=== PATIENT | male | born 1940 | race Two or more races ===

== ENCOUNTER 2024-09-18 20:55 | Inpatient (IN) | payer MEDICARE, MEDICAID ==
[~2024-09-18] VITALS: Ht 170.2 cm; Wt 63.0 kg
[~2024-09-18 20:55] MED LIST: CEFT1VIA14 IV; VANC750F2 IV
[2024-09-18] MEDS ORDERED: PIPERACI/TAZO 3.375GM/D5W 50ML PB IV ONE (21:16)
[2024-09-18] MEDS: PIPERACILLIN /TAZOBACTAM 3.375 G in IV D5W 50 ML IV ONE (21:20)
[2024-09-18] MEDS ORDERED: VANCOMYCIN 1 GM /D5W 250 ML PB IV ONE (21:24)
[2024-09-18 21:30] LABS: PLATELET COUNT (AUTO) 444 K/uL (150-450); RED BLOOD CELL COUNT(AUTO) 3.64 MIL/uL (4.5-6.0); RED CELL DISTRIBUTION WIDTH 19.9 % (11.5-15.0); WHITE BLOOD COUNT (AUTO) 15.3 K/uL (4.3-11.0)
[2024-09-18 21:34] VITALS: O2SAT 98
[2024-09-18] MEDS ORDERED: AMLO-212 PO (21:36)
[2024-09-18] MEDS ORDERED: EMPA10TA PO (21:36)
[2024-09-18] MEDS ORDERED: PANT40TA2 PO (21:36)
[2024-09-18] MEDS ORDERED: THIA100T74 PO (21:36)
[2024-09-18] MEDS ORDERED: VANC1PLA9 IV (21:36)
[2024-09-18] MEDS ORDERED: CYPR4TAB44 PO (21:36)
[2024-09-18] MEDS ORDERED: HYDR-3972 PO (21:36)
[2024-09-18] MEDS ORDERED: CLOP75TA15 PO (21:36)
[2024-09-18] MEDS ORDERED: ASPI-1420 PO (21:36)
[2024-09-18] MEDS ORDERED: GLIP5TAB13 PO (21:36)
[2024-09-18] MEDS ORDERED: CEFT1FRO2 IV (21:36)
[2024-09-18] MEDS ORDERED: HYDR-4077 PO (21:36)
[2024-09-18] MEDS ORDERED: GABA-532 PO (21:36)
[2024-09-18] MEDS ORDERED: ACET325C7 PO (21:36)
[2024-09-18] MEDS ORDERED: CARV12.52 PO (21:36)
[2024-09-18] MEDS ORDERED: MULT-213 PO (21:36)
[2024-09-18] MEDS ORDERED: ASCO500T10 PO (21:36)
[2024-09-18] MEDS ORDERED: FOLI0.8T3 PO (21:36)
[2024-09-18] MEDS ORDERED: INSU100V10 SQ (21:36)
[2024-09-18] MEDS ORDERED: METF-440 PO (21:36)
[2024-09-18] MEDS ORDERED: MIRT-73 PO (21:36)
[2024-09-18 21:38] LABS: CALCIUM, SERUM 8.8 mg/dL (8.5-10.1); CREATININE 2.0 mg/dL (0.6-1.3); SODIUM SERUM 144 mmol/L (136-145); UREA NITROGEN, BLOOD 32 mg/dL (7-18)
[2024-09-18] MEDS: VANCOMYCIN 1 GM in IV D5W 250 ML IV ONE (21:40)
[2024-09-18 21:43] LABS: ASPARTATE AMINOTRANSFERASE 17 U/L (15-37); TOTAL PROTEIN, SERUM 7.6 g/dL (6.4-8.2)
[2024-09-18 21:47] LABS: INR 1.05 (0.91-1.10)
[2024-09-18 21:55] LABS: LACTIC ACID 2.4 mmol/L (0.4-2.0)
[2024-09-18] MEDS: ASPIRIN 325 MG TABLET PO ONE (22:00)
[2024-09-18] MEDS: IV NS 0.9% 1,000 ML BAG IV ONE (22:15)
[2024-09-18] MEDS ORDERED: AZITHROMYCIN 500 MG VIAL ONE (22:27)
[2024-09-18] MEDS: AZITHROMYCIN 500 MG in IV D5W 250 ML IV ONE (22:50)
[2024-09-18 22:54] LABS: ABG BASE EXCESS -4.1 mmol/L (-2.0-3.0); ABG OXYGEN SATURATION 97.9 % (94.0-98.0); ABG PCO2 28.7 mmHg (35.0-48.0); ABG PH 7.440 (7.350-7.450); ABG PO2 113.4 mmHg (83.0-108.0); ABG TOTAL HEMOGLOBIN 10.5 G/dL (13.5-17.5); FLOW, BLOOD GAS 40.00 L/min (0.00-30.00); FRACTIONATED INSPIRED OXYGEN 100.0 %; SITE, ABG LEFT BRACHIAL
[2024-09-18] MEDS ORDERED: DOSING PER PHARMACY-ZOSYN IV 1 EA EA XX PRN (23:00)
[2024-09-18] MEDS ORDERED: DOSING PER PHARMACY-VANCOMYCIN IV XX PRN (23:00)
[2024-09-18] MEDS ORDERED: IPRATROPIUM NEB FS 0.5 MG/2.5 ML AMPUL.NEB NEB PRN (23:00)
[2024-09-18 23:02] VITALS: O2SAT 99
[2024-09-19] VITALS (29 sets, daily range): BP systolic 92–154; BP diastolic 58–115; TEMP 96.4–98.7; O2SAT 92–99
[2024-09-19] MEDS ORDERED: HEPARIN SODIUM, PORCINE 5000 UNITS/1 ML VIAL ONE (02:23)
[2024-09-19] MEDS ORDERED: PIPERACILLIN /TAZOBACTAM 3.375 G in IV D5W 50 ML IV ONE (06:00)
[2024-09-19 06:26] LABS: PLATELET COUNT (AUTO) 414 K/uL (150-450); RED BLOOD CELL COUNT(AUTO) 3.55 MIL/uL (4.5-6.0); RED CELL DISTRIBUTION WIDTH 19.7 % (11.5-15.0); WHITE BLOOD COUNT (AUTO) 16.2 K/uL (4.3-11.0)
[2024-09-19 07:25] LABS: CALCIUM, SERUM 8.6 mg/dL (8.5-10.1); CREATININE 2.4 mg/dL (0.6-1.3); PHOSPHORUS 6.0 mg/dL (2.5-4.9); SODIUM SERUM 143.0 mmol/L (136-145); UREA NITROGEN, BLOOD 37.0 mg/dL (7-18)
[2024-09-19] MEDS: PANTOPRAZOLE 40 MG VIAL IV SCH (08:35)
[2024-09-19] MEDS: ZOSYN IVPB 2.25 G in IV D5W 50ml IV SCH (08:35)
[2024-09-19] MEDS: ASPIRIN 81 MG TAB.CHEW PO SCH (10:00)
[2024-09-19] MEDS: HEPARIN SODIUM, PORCINE 5000 UNITS/1 ML VIAL SQ SCH (11:15)
[2024-09-19] MEDS ORDERED: ZINC220C6 PO (11:23)
[2024-09-19] MEDS ORDERED: ACET325T53 PO ×2 (11:23)
[2024-09-19] MEDS ORDERED: IPRA0.2S49 IH (11:23)
[2024-09-19] MEDS ORDERED: POLY119P2 PO (11:23)
[2024-09-19] MEDS ORDERED: INSU100I30 SQ (11:23)
[2024-09-19] MEDS ORDERED: SODI473S8 TP (11:28)
[2024-09-19] MEDS ORDERED: POVI1MED TP (11:28)
[2024-09-19] MEDS: ALBUTEROL HALF STRENGTH 1.25 MG/3 ML VIAL.NEB NEB SCH (13:06)
[2024-09-19] MEDS: IPRATROPIUM NEB FS 0.5 MG/2.5 ML AMPUL.NEB NEB SCH (13:06)
[2024-09-19] MEDS ORDERED: IPRATROPIUM NEB FS 0.5 MG/2.5 ML AMPUL.NEB IH PRN (19:30)
[2024-09-19] MEDS: VANCOMYCIN 750 MG in IV D5W 250 ML IV SCH (21:29)
[2024-09-19] MEDS: GABAPENTIN 100 MG CAPSULE PO SCH (22:00)
[2024-09-19] MEDS: INSULIN GLARGINE, 100 UNIT/ML CARTRIDGE SQ SCH (22:00)
[2024-09-19] MEDS: MIRTAZAPINE SOLUTAB 15 MG/UDTABLET TAB.RAPDIS PO SCH (22:00)
[2024-09-19] MEDS: MEROPENEM 500MG/NS 50 ML PB IV ONE (22:12)
[2024-09-19] MEDS: MEROPENEM 500 MG in IV NS 0.9% 100 ML IV ONE (22:21)
[2024-09-19] MEDS: HYDROMORPHONE 1 MG/1 ML DISP.SYRIN IV PRN (23:24)
[2024-09-20] VITALS (22 sets, daily range): BP systolic 109–165; BP diastolic 31–107; TEMP 97–98.6; O2SAT 90–99
[2024-09-20] MEDS: BLOOD SUGAR DIAGNOSTIC 1 EACH STRIP IN SCH (00:39)
[2024-09-20] MEDS: INSULIN REGULAR, HUMAN 100 UNIT/ML 3 ML VIAL SQ PRN (00:43)
[2024-09-20 04:08] LABS: PLATELET COUNT (AUTO) 360 K/uL (150-450); RED BLOOD CELL COUNT(AUTO) 3.25 MIL/uL (4.5-6.0); RED CELL DISTRIBUTION WIDTH 19.8 % (11.5-15.0); WHITE BLOOD COUNT (AUTO) 16.2 K/uL (4.3-11.0)
[2024-09-20 04:26] LABS: ASPARTATE AMINOTRANSFERASE 15.0 U/L (15-37); CALCIUM, SERUM 8.7 mg/dL (8.5-10.1); CREATINE KINASE, TOTAL 117.0 U/L (39-308); CREATININE 2.3 mg/dL (0.6-1.3); PHOSPHORUS 4.9 mg/dL (2.5-4.9); SODIUM SERUM 145.0 mmol/L (136-145); TOTAL PROTEIN, SERUM 7.1 g/dL (6.4-8.2); UREA NITROGEN, BLOOD 44.0 mg/dL (7-18)
[2024-09-20] MEDS: METFORMIN 500 MG TABLET PO SCH (07:30)
[2024-09-20] MEDS ORDERED: PANTOPRAZOLE 40 MG TABLET.DR PO SCH (07:30)
[2024-09-20] MEDS: AMLODIPINE BESYLATE 5 MG TABLET PO SCH ×2 (08:17→21:00)
[2024-09-20] MEDS: CLOPIDOGREL BISULFATE 75 MG TABLET PO SCH (08:17)
[2024-09-20] MEDS: ASPIRIN EC 81 MG TABLET.DR PO SCH (08:17)
[2024-09-20] MEDS: CARVEDILOL 12.5 MG TABLET PO SCH ×2 (08:17→21:00)
[2024-09-20] MEDS: CYPROHEPTADINE HCL 4 MG TABLET PO SCH ×2 (08:17→21:00)
[2024-09-20] MEDS: THIAMINE HCL 100 MG TABLET PO SCH (08:18)
[2024-09-20] MEDS: MEROPENEM 500 MG in IV NS 0.9% 50 ML IV SCH (08:36)
[2024-09-20] MEDS ORDERED: EMPAGLIFLOZIN 10 MG TABLET PO SCH (12:00)
[2024-09-20] MEDS: AZITHROMYCIN 500 MG in IV D5W 250 ML IV SCH (13:04)
[2024-09-20] MEDS: HEPARIN SODIUM, PORCINE 5000 UNITS/1 ML VIAL SQ SCH (22:03)
[2024-09-20] MEDS: IV NS 0.9% 250 ML IV PRN (23:36)
[2024-09-21] VITALS (20 sets, daily range): BP systolic 105–159; BP diastolic 33–107; TEMP 97–97.9; O2SAT 93–100
[2024-09-21 03:50] LABS: PLATELET COUNT (AUTO) 317 K/uL (150-450); RED BLOOD CELL COUNT(AUTO) 3.04 MIL/uL (4.5-6.0); RED CELL DISTRIBUTION WIDTH 19.7 % (11.5-15.0); WHITE BLOOD COUNT (AUTO) 11.9 K/uL (4.3-11.0)
[2024-09-21 04:05] LABS: ASPARTATE AMINOTRANSFERASE 12 U/L (15-37); CALCIUM, SERUM 8.9 mg/dL (8.5-10.1); CREATININE 2.2 mg/dL (0.6-1.3); PHOSPHORUS 4.6 mg/dL (2.5-4.9); SODIUM SERUM 142 mmol/L (136-145); TOTAL PROTEIN, SERUM 6.7 g/dL (6.4-8.2); UREA NITROGEN, BLOOD 53 mg/dL (7-18)
[2024-09-21 07:07] LABS: PTH, INTACT 112 pg/mL (15-65)
[2024-09-21] MEDS: ALBUTEROL FS 2.5 MG/3 ML VIAL.NEB NEB PRN (07:38)
[2024-09-21] MEDS: IV 1/2NS 1000 ML 1,000 ML IV ONE (11:07)
[2024-09-22] VITALS (32 sets, daily range): BP systolic 119–168; BP diastolic 34–102; TEMP 97.2–98; O2SAT 89–100
[2024-09-22 03:58] LABS: CALCIUM, SERUM 9.1 mg/dL (8.5-10.1); CREATININE 2.5 mg/dL (0.6-1.3); SODIUM SERUM 146.0 mmol/L (136-145); UREA NITROGEN, BLOOD 64.0 mg/dL (7-18)
[2024-09-22] MEDS: IV D5W 1,000 ML IV PRN (09:31)
[2024-09-22] MEDS ORDERED: VANCOMYCIN 750 MG in IV D5W 250 ML IV SCH (16:00)
[2024-09-22] MEDS: FUROSEMIDE 20 MG/2 ML VIAL IV SCH (16:47)
[2024-09-23] VITALS (25 sets, daily range): BP systolic 49–162; BP diastolic 37–107; TEMP 97.2–98; O2SAT 85–100
[2024-09-23] MEDS ORDERED: INSULIN GLARGINE, 100 UNIT/ML CARTRIDGE SQ ONE (00:09)
[2024-09-23 04:22] LABS: PLATELET COUNT (AUTO) 325 K/uL (150-450); RED BLOOD CELL COUNT(AUTO) 3.00 MIL/uL (4.5-6.0); RED CELL DISTRIBUTION WIDTH 19.9 % (11.5-15.0); WHITE BLOOD COUNT (AUTO) 13.2 K/uL (4.3-11.0)
[2024-09-23 04:38] LABS: ASPARTATE AMINOTRANSFERASE 11.0 U/L (15-37); CALCIUM, SERUM 8.7 mg/dL (8.5-10.1); CREATININE 2.5 mg/dL (0.6-1.3); PHOSPHORUS 4.4 mg/dL (2.5-4.9); SODIUM SERUM 144.0 mmol/L (136-145); TOTAL PROTEIN, SERUM 6.3 g/dL (6.4-8.2)
[2024-09-23 04:40] LABS: UREA NITROGEN, BLOOD 81.0 mg/dL (7-18)
[2024-09-23] MEDS ORDERED: PANTOPRAZOLE 40 MG/PACK PACK PO SCH (09:00)
[2024-09-23 21:40] LABS: APPEARANCE,URINE CLEAR (CLEAR); BLOOD, URINE NEGATIVE Ery/uL (NEGATIVE); LEUKOCYTE ESTERASE ,URINE NEGATIVE (NEGATIVE); NITRITE, URINE NEGATIVE (NEGATIVE); UGLUCOSE NEGATIVE (NEGATIVE)
[2024-09-23 21:44] LABS: CREATININE, URINE 172.9 MG/DL (30.0-125.0); URINE SODIUM, RANDOM 45.0 mmol/l (40-220); URINE TOTAL PROTEIN 32.0 mg/dL (0-11.9)
[2024-09-23 21:47] LABS: ADD URINE CULTURE NO; URINE AMORPHOUS URATE Few /HPF (None Seen)
[2024-09-23 21:52] LABS: ABG BASE EXCESS -7.9 mmol/L (-2.0-3.0); ABG OXYGEN SATURATION 87.6 % (94.0-98.0); ABG PCO2 40.3 mmHg (35.0-48.0); ABG PH 7.276 (7.350-7.450); ABG PO2 67.0 mmHg (83.0-108.0); ABG TOTAL HEMOGLOBIN 10.0 G/dL (13.5-17.5); FRACTIONATED INSPIRED OXYGEN 100.0 %; SET RATE, BG 16.0; SITE, ABG LEFT RADIAL
[2024-09-23] MEDS: Sodium Bicarbonate 100 MEQ in IV D5W 1,000 ML IV PRN (22:15)
[2024-09-23] MEDS: SODIUM BICARBONATE SYR 50 MEQ/50 ML DISP.SYRIN IV ONE (22:15)
[2024-09-23] MEDS: VANCOMYCIN 1 GM in IV D5W 250ml IV SCH (23:50)
[2024-09-24] VITALS (47 sets, daily range): BP systolic 64–147; BP diastolic 20–132; TEMP 97.3–98.1; O2SAT 90–100
[2024-09-24 04:52] LABS: PLATELET COUNT (AUTO) 370 K/uL (150-450); RED BLOOD CELL COUNT(AUTO) 3.39 MIL/uL (4.5-6.0); RED CELL DISTRIBUTION WIDTH 19.3 % (11.5-15.0); WHITE BLOOD COUNT (AUTO) 18.6 K/uL (4.3-11.0)
[2024-09-24 05:06] LABS: ASPARTATE AMINOTRANSFERASE 11.0 U/L (15-37); CALCIUM, SERUM 8.8 mg/dL (8.5-10.1); CREATININE 2.8 mg/dL (0.6-1.3); PHOSPHORUS 5.8 mg/dL (2.5-4.9); SODIUM SERUM 144.0 mmol/L (136-145); TOTAL PROTEIN, SERUM 6.2 g/dL (6.4-8.2)
[2024-09-24 05:31] LABS: UREA NITROGEN, BLOOD 93.0 mg/dL (7-18)
[2024-09-24] MEDS: PANTOPRAZOLE 40 MG/PACK PACK PO SCH (09:00)
[2024-09-24] MEDS: hydrALAZINE HCL IV 20 MG VIAL IV PRN (10:33)
[2024-09-24] MEDS ORDERED: ETOMIDATE 2 MG/ML VIAL IV ONE (11:42)
[2024-09-24] MEDS ORDERED: ROCURONIUM BROMIDE 50 MG/5 ML IV ONE (11:42)
[2024-09-24] MEDS ORDERED: PROPOFOL 100 ML IV PRN (12:00)
[2024-09-24] MEDS ORDERED: NOREPINEPHRINE 32 MG in IV NS 0.9% 218 ML IV PRN (12:00)
[2024-09-24 13:07] LABS: *ANCA ATYPICAL p-ANCA <1:20 titer (Neg:<1:20); *ANCA CYTOPLASMIC (C-ANCA) <1:20 titer (Neg:<1:20); *ANCA PERINUCLEAR (P-ANCA) <1:20 titer (Neg:<1:20)
[2024-09-24] MEDS: NOREPINEPHRINE 32 MG in IV NS 0.9% 218 ML IV PRN (13:36)
[2024-09-24 13:53] LABS: ABG BASE EXCESS -2.7 mmol/L (-2.0-3.0); ABG OXYGEN SATURATION 91.8 % (94.0-98.0); ABG PCO2 32.4 mmHg (35.0-48.0); ABG PH 7.429 (7.350-7.450); ABG PO2 67.7 mmHg (83.0-108.0); ABG TOTAL HEMOGLOBIN 10.0 G/dL (13.5-17.5); FRACTIONATED INSPIRED OXYGEN 100.0 %; PEEP,BG 5 cm H2O; SET RATE, BG 16.0; VT, ABG 550 mL
[2024-09-24 14:01] LABS: SITE, ABG RIGHT RADIAL
[2024-09-24] MEDS: PROPOFOL 100 ML IV PRN (14:14)
[2024-09-24 15:07] LABS: COCCIDIOIDES Abs, IgG,EIA 0.3 EIA Units (.); COCCIDIOIDES Abs, IgM,EIA 0.3 EIA Units (.)
[2024-09-24 15:27] LABS: ABG BASE EXCESS -4.4 mmol/L (-2.0-3.0); ABG OXYGEN SATURATION 96.5 % (94.0-98.0); ABG PCO2 32.8 mmHg (35.0-48.0); ABG PH 7.396 (7.350-7.450); ABG PO2 99.6 mmHg (83.0-108.0); ABG TOTAL HEMOGLOBIN 10.9 G/dL (13.5-17.5); FRACTIONATED INSPIRED OXYGEN 100.0 %; PEEP,BG 8 cm H2O; SET RATE, BG 25.0; SITE, ABG RIGHT RADIAL; VT, ABG 400 mL
[2024-09-24] MEDS: Sodium Bicarbonate 100 MEQ in IV D5W 1,000 ML IV SCH (15:34)
[2024-09-24] MEDS: FENTANYL CITRAT IV 2,500 MCG in IV NS 0.9% 200 ML IV PRN (17:07)
[2024-09-25] VITALS (52 sets, daily range): BP systolic 89–139; BP diastolic 19–92; TEMP 97.6–97.9; O2SAT 56–100
[2024-09-25 05:11] LABS: CALCIUM, SERUM 7.9 mg/dL (8.5-10.1); CREATININE 2.4 mg/dL (0.6-1.3); SODIUM SERUM 140.0 mmol/L (136-145); UREA NITROGEN, BLOOD 70.0 mg/dL (7-18)
[2024-09-25 08:49] LABS: ABG BASE EXCESS 1.4 mmol/L (-2.0-3.0); ABG OXYGEN SATURATION 86.0 % (94.0-98.0); ABG PCO2 38.4 mmHg (35.0-48.0); ABG PH 7.440 (7.350-7.450); ABG PO2 54.3 mmHg (83.0-108.0); ABG TOTAL HEMOGLOBIN 10.2 G/dL (13.5-17.5); FRACTIONATED INSPIRED OXYGEN 80.0 %; PEEP,BG 8 cm H2O; SET RATE, BG 25.0; SITE, ABG RIGHT RADIAL; VT, ABG 400 mL
[2024-09-25] MEDS ORDERED: NEPRO 1,000 ML BOTTLE GT PRN (11:30)
[2024-09-25] MEDS ORDERED: NEPRO 1,000 ML BOTTLE NG SCH (12:00)
[2024-09-25] MEDS: GLUCERNA 1.2 1,000 ML BOTTLE NG PRN (18:01)
[2024-09-26] VITALS (72 sets, daily range): BP systolic 74–167; BP diastolic 17–89; TEMP 97.6–98.5; O2SAT 91–100
[2024-09-26 06:07] LABS: *SPE A/G RATIO 0.6 (0.7-1.7); *SPE ALBUMIN 2.4 g/dL (2.9-4.4); *SPE ALPHA-1-GLOBULIN 0.4 g/dL (0.0-0.4); *SPE ALPHA-2-GLOBULIN 1.0 g/dL (0.4-1.0); *SPE BETA GLOBULIN 1.3 g/dL (0.7-1.3); *SPE GLOBULIN, TOTAL 3.7 g/dL (2.2-3.9); *SPE M-SPIKE Not Observed g/dL (Not Observed); *SPE PROTEIN TOTAL 6.1 g/dL (6.0-8.5); *SPEGAMMA GLOBULIN 1.0 g/dL (0.4-1.8)
[2024-09-26] MEDS: NOREPINEPHRINE 8 MG in IV D5W 242 ML IV PRN (06:28)
[2024-09-26 08:29] LABS: ABG BASE EXCESS 4.6 mmol/L (-2.0-3.0); ABG OXYGEN SATURATION 94.1 % (94.0-98.0); ABG PCO2 38.0 mmHg (35.0-48.0); ABG PH 7.489 (7.350-7.450); ABG PO2 72.2 mmHg (83.0-108.0); ABG TOTAL HEMOGLOBIN 9.4 G/dL (13.5-17.5); FRACTIONATED INSPIRED OXYGEN 70.0 %; PEEP,BG 10 cm H2O; SET RATE, BG 25.0; SITE, ABG RIGHT RADIAL; VT, ABG 400 mL
[2024-09-26] MEDS ORDERED: VANCOMYCIN 750 MG in IV D5W 250 ML IV SCH (10:00)
[2024-09-26 12:02] LABS: CALCIUM, SERUM 8.1 mg/dL (8.5-10.1); CREATININE 3.2 mg/dL (0.6-1.3); PHOSPHORUS 4.5 mg/dL (2.5-4.9); SODIUM SERUM 140.0 mmol/L (136-145); UREA NITROGEN, BLOOD 56.0 mg/dL (7-18)
[2024-09-26] MEDS: FLUCONAZOLE (100 MG) 100 MG TABLET PO SCH (21:44)
[2024-09-26 22:06] LABS: *MYCOPLASMA PNEUMONIAE IgG 178 U/mL (0-99); *MYCOPLASMA PNEUMONIAE IgM <770 U/mL (0-769)
[2024-09-27] VITALS (96 sets, daily range): BP systolic 75–181; BP diastolic 16–101; TEMP 97.9–98.6; O2SAT 88–100
[2024-09-27 04:56] LABS: PLATELET COUNT (AUTO) 309 K/uL (150-450); RED BLOOD CELL COUNT(AUTO) 3.12 MIL/uL (4.5-6.0); RED CELL DISTRIBUTION WIDTH 19.7 % (11.5-15.0); WHITE BLOOD COUNT (AUTO) 18.6 K/uL (4.3-11.0)
[2024-09-27 04:59] LABS: CALCIUM, SERUM 7.6 mg/dL (8.5-10.1); CREATININE 2.4 mg/dL (0.6-1.3); PHOSPHORUS 3.8 mg/dL (2.5-4.9); SODIUM SERUM 141.0 mmol/L (136-145); UREA NITROGEN, BLOOD 39.0 mg/dL (7-18)
[2024-09-27 05:58] LABS: EOSINOPHILS % (MANUAL) 1 % (0-4); LYMPHOCYTES % (MANUAL) 9 % (16-48); MONOCYTES % (MANUAL) 10 % (0-11.0); NEUTROPHILS % (MANUAL) 80 (42-76); PLATELET ESTIMATE ADEQUATE
[2024-09-27 08:00] LABS: ABG BASE EXCESS 6.9 mmol/L (-2.0-3.0); ABG OXYGEN SATURATION 82.7 % (94.0-98.0); ABG PCO2 45.3 mmHg (35.0-48.0); ABG PH 7.460 (7.350-7.450); ABG PO2 47.0 mmHg (83.0-108.0); ABG TOTAL HEMOGLOBIN 9.5 G/dL (13.5-17.5); FRACTIONATED INSPIRED OXYGEN 50.0 %; PEEP,BG 5 cm H2O; SET RATE, BG 18.0; SITE, ABG RIGHT RADIAL; VT, ABG 400 mL
[2024-09-27] MEDS: POTASSIUM CL. PREMIX PERIPHER. 50 ML IV SCH (11:19)
[2024-09-28] VITALS (45 sets, daily range): BP systolic 90–163; BP diastolic 14–73; TEMP 97.6–99; O2SAT 90–100
[2024-09-28 05:09] LABS: PLATELET COUNT (AUTO) 248 K/uL (150-450); RED BLOOD CELL COUNT(AUTO) 2.92 MIL/uL (4.5-6.0); RED CELL DISTRIBUTION WIDTH 19.9 % (11.5-15.0); WHITE BLOOD COUNT (AUTO) 14.7 K/uL (4.3-11.0)
[2024-09-28 05:18] LABS: CALCIUM, SERUM 8.1 mg/dL (8.5-10.1); CREATININE 3.4 mg/dL (0.6-1.3); PHOSPHORUS 5.3 mg/dL (2.5-4.9); SODIUM SERUM 138.0 mmol/L (136-145); UREA NITROGEN, BLOOD 54.0 mg/dL (7-18)
[2024-09-28] MEDS ORDERED: LORAZEPAM INJ 2 MG/ML VIAL IV PRN (23:00)
[2024-09-29] VITALS (24 sets, daily range): BP systolic 82–141; BP diastolic 30–78; TEMP 97.4–99.4; O2SAT 95–100
[2024-09-29] MEDS: VANCOMYCIN POST DIALYSIS 500MG IV PRN (01:06)
[2024-09-29 04:11] LABS: PLATELET COUNT (AUTO) 254 K/uL (150-450); RED BLOOD CELL COUNT(AUTO) 2.98 MIL/uL (4.5-6.0); RED CELL DISTRIBUTION WIDTH 19.9 % (11.5-15.0); WHITE BLOOD COUNT (AUTO) 15.7 K/uL (4.3-11.0)
[2024-09-29 04:35] LABS: CALCIUM, SERUM 7.9 mg/dL (8.5-10.1); CREATININE 2.9 mg/dL (0.6-1.3); PHOSPHORUS 4.2 mg/dL (2.5-4.9); SODIUM SERUM 141.0 mmol/L (136-145); UREA NITROGEN, BLOOD 40.0 mg/dL (7-18)
[2024-09-29 05:08] LABS: HEPATITIS B CORE AB, IgM Negative (Negative); HEPATITIS B CORE AB, TOTAL Positive (Negative)
[2024-09-29 06:55] LABS: ABG BASE EXCESS 1.3 mmol/L (-2.0-3.0); ABG OXYGEN SATURATION 92.8 % (94.0-98.0); ABG PCO2 42.2 mmHg (35.0-48.0); ABG PH 7.409 (7.350-7.450); ABG PO2 71.5 mmHg (83.0-108.0); ABG TOTAL HEMOGLOBIN 8.1 G/dL (13.5-17.5); FRACTIONATED INSPIRED OXYGEN 60.0 %; PEEP,BG 8 cm H2O; SET RATE, BG 18.0; SITE, ABG LEFT BRACHIAL; VT, ABG 400 mL
[2024-09-29 09:28] LABS: ABG BASE EXCESS 1.7 mmol/L (-2.0-3.0); ABG OXYGEN SATURATION 96.2 % (94.0-98.0); ABG PCO2 39.2 mmHg (35.0-48.0); ABG PH 7.439 (7.350-7.450); ABG PO2 88.6 mmHg (83.0-108.0); ABG TOTAL HEMOGLOBIN 7.5 G/dL (13.5-17.5); FRACTIONATED INSPIRED OXYGEN 60.0 %; PEEP,BG 8 cm H2O; SET RATE, BG 18.0; SITE, ABG LEFT BRACHIAL; VT, ABG 400 mL
[2024-09-30] VITALS (24 sets, daily range): BP systolic 90–153; BP diastolic 32–137; TEMP 97.6–98.7; O2SAT 96–100
[2024-09-30 04:54] LABS: PLATELET COUNT (AUTO) 254 K/uL (150-450); RED BLOOD CELL COUNT(AUTO) 2.65 MIL/uL (4.5-6.0); RED CELL DISTRIBUTION WIDTH 20.0 % (11.5-15.0); WHITE BLOOD COUNT (AUTO) 11.5 K/uL (4.3-11.0)
[2024-09-30 05:04] LABS: CALCIUM, SERUM 8.0 mg/dL (8.5-10.1); CREATININE 3.7 mg/dL (0.6-1.3); SODIUM SERUM 142 mmol/L (136-145); UREA NITROGEN, BLOOD 53 mg/dL (7-18)
[2024-09-30 05:05] LABS: ASPARTATE AMINOTRANSFERASE 22 U/L (15-37); PHOSPHORUS 5.1 mg/dL (2.5-4.9); TOTAL PROTEIN, SERUM 5.2 g/dL (6.4-8.2)
[2024-09-30 05:48] LABS: NEUTROPHILS % (MANUAL) 80 (42-76)
[2024-09-30 05:49] LABS: EOSINOPHILS % (MANUAL) 4 % (0-4); LYMPHOCYTES % (MANUAL) 7 % (16-48); MONOCYTES % (MANUAL) 9 % (0-11.0); PLATELET ESTIMATE ADEQUATE
[2024-09-30 08:42] LABS: ABG BASE EXCESS 2.9 mmol/L (-2.0-3.0); ABG OXYGEN SATURATION 91.0 % (94.0-98.0); ABG PCO2 38.6 mmHg (35.0-48.0); ABG PH 7.461 (7.350-7.450); ABG PO2 61.6 mmHg (83.0-108.0); ABG TOTAL HEMOGLOBIN 7.5 G/dL (13.5-17.5); FRACTIONATED INSPIRED OXYGEN 50.0 %; PEEP,BG 8 cm H2O; SET RATE, BG 18.0; SITE, ABG RIGHT RADIAL; VT, ABG 400 mL
[2024-09-30] MEDS: ALBUMIN 25% 25 GM in PREMIX 1 EA IV PRN (14:04)
[2024-09-30] MEDS: NEPRO 1,000 ML BOTTLE GT PRN (20:12)
[2024-10-01] VITALS (30 sets, daily range): BP systolic 73–141; BP diastolic 40–108; TEMP 98.2–99.4; O2SAT 95–100
[2024-10-01 05:26] LABS: PLATELET COUNT (AUTO) 243 K/uL (150-450); RED BLOOD CELL COUNT(AUTO) 2.43 MIL/uL (4.5-6.0); RED CELL DISTRIBUTION WIDTH 20.0 % (11.5-15.0); WHITE BLOOD COUNT (AUTO) 9.1 K/uL (4.3-11.0)
[2024-10-01 05:56] LABS: ASPARTATE AMINOTRANSFERASE 19.0 U/L (15-37); CALCIUM, SERUM 7.9 mg/dL (8.5-10.1); CREATININE 3.2 mg/dL (0.6-1.3); PHOSPHORUS 4.4 mg/dL (2.5-4.9); SODIUM SERUM 136.0 mmol/L (136-145); TOTAL PROTEIN, SERUM 5.2 g/dL (6.4-8.2); UREA NITROGEN, BLOOD 43.0 mg/dL (7-18)
[2024-10-01 07:07] LABS: EOSINOPHILS % (MANUAL) 3 % (0-4); LYMPHOCYTES % (MANUAL) 9 % (16-48); MONOCYTES % (MANUAL) 13 % (0-11.0); NEUTROPHILS % (MANUAL) 75 (42-76); PLATELET ESTIMATE ADEQUATE
[2024-10-01 08:52] LABS: ABG BASE EXCESS 2.5 mmol/L (-2.0-3.0); ABG OXYGEN SATURATION 92.2 % (94.0-98.0); ABG PCO2 34.9 mmHg (35.0-48.0); ABG PH 7.489 (7.350-7.450); ABG PO2 65.9 mmHg (83.0-108.0); ABG TOTAL HEMOGLOBIN 7.3 G/dL (13.5-17.5); FRACTIONATED INSPIRED OXYGEN 40.0 %; PEEP,BG 10 cm H2O; SET RATE, BG 18.0; SITE, ABG RIGHT RADIAL; VT, ABG 400 mL
[2024-10-01] MEDS: EPOETIN ALFA (10,000 UNIT) 10,000 UNIT/ML VIAL SQ ONE (15:06)
[2024-10-02] VITALS (28 sets, daily range): BP systolic 92–145; BP diastolic 25–68; TEMP 98.4–99.4; O2SAT 63–100
[2024-10-02 06:00] LABS: ASPARTATE AMINOTRANSFERASE 16.0 U/L (15-37); CALCIUM, SERUM 7.7 mg/dL (8.5-10.1); CREATININE 4.1 mg/dL (0.6-1.3); PHOSPHORUS 4.5 mg/dL (2.5-4.9); SODIUM SERUM 136.0 mmol/L (136-145); TOTAL PROTEIN, SERUM 4.9 g/dL (6.4-8.2); UREA NITROGEN, BLOOD 53.0 mg/dL (7-18)
[2024-10-02 06:09] LABS: PLATELET COUNT (AUTO) 241 K/uL (150-450); RED BLOOD CELL COUNT(AUTO) 2.77 MIL/uL (4.5-6.0); RED CELL DISTRIBUTION WIDTH 22.3 % (11.5-15.0); WHITE BLOOD COUNT (AUTO) 9.7 K/uL (4.3-11.0)
[2024-10-02 07:08] LABS: LYMPHOCYTES % (MANUAL) 10 % (16-48); MONOCYTES % (MANUAL) 6 % (0-11.0); NEUTROPHILS % (MANUAL) 84 (42-76); PLATELET ESTIMATE PLATELET CLUMPS SEEN
[2024-10-02] MEDS: Z GUARD REMEDY 4 OZ OINT TP SCH (10:05)
[2024-10-03] VITALS (24 sets, daily range): BP systolic 93–132; BP diastolic 3–78; TEMP 98.5–99.7; O2SAT 92–99
[2024-10-03 05:07] LABS: PLATELET COUNT (AUTO) 244 K/uL (150-450); RED BLOOD CELL COUNT(AUTO) 3.22 MIL/uL (4.5-6.0); RED CELL DISTRIBUTION WIDTH 20.8 % (11.5-15.0); WHITE BLOOD COUNT (AUTO) 12.5 K/uL (4.3-11.0)
[2024-10-03 05:25] LABS: ASPARTATE AMINOTRANSFERASE 16.0 U/L (15-37); CALCIUM, SERUM 8.1 mg/dL (8.5-10.1); CREATININE 2.9 mg/dL (0.6-1.3); PHOSPHORUS 3.3 mg/dL (2.5-4.9); SODIUM SERUM 137.0 mmol/L (136-145); TOTAL PROTEIN, SERUM 5.6 g/dL (6.4-8.2); UREA NITROGEN, BLOOD 35.0 mg/dL (7-18)
[2024-10-03] MEDS: THERAHONEY GEL 1.5 OZ TUBE TP SCH (09:33)
[2024-10-04] VITALS (24 sets, daily range): BP systolic 73–138; BP diastolic 31–92; TEMP 98.3–99.1; O2SAT 91–99
[2024-10-04 05:08] LABS: PLATELET COUNT (AUTO) 247 K/uL (150-450); RED BLOOD CELL COUNT(AUTO) 3.23 MIL/uL (4.5-6.0); RED CELL DISTRIBUTION WIDTH 20.5 % (11.5-15.0); WHITE BLOOD COUNT (AUTO) 14.6 K/uL (4.3-11.0)
[2024-10-04 05:22] LABS: ASPARTATE AMINOTRANSFERASE 16.0 U/L (15-37); CALCIUM, SERUM 8.1 mg/dL (8.5-10.1); CREATININE 3.9 mg/dL (0.6-1.3); SODIUM SERUM 138.0 mmol/L (136-145); TOTAL PROTEIN, SERUM 5.5 g/dL (6.4-8.2); UREA NITROGEN, BLOOD 54.0 mg/dL (7-18)
[2024-10-05] VITALS (24 sets, daily range): BP systolic 68–135; BP diastolic 32–101; TEMP 97.9–98.5; O2SAT 93–99
[2024-10-05 04:48] LABS: PLATELET COUNT (AUTO) 247 K/uL (150-450); RED BLOOD CELL COUNT(AUTO) 3.03 MIL/uL (4.5-6.0); RED CELL DISTRIBUTION WIDTH 21.2 % (11.5-15.0); WHITE BLOOD COUNT (AUTO) 17.0 K/uL (4.3-11.0)
[2024-10-05 05:16] LABS: CALCIUM, SERUM 8.3 mg/dL (8.5-10.1); CREATININE 3.3 mg/dL (0.6-1.3); PHOSPHORUS 3.0 mg/dL (2.5-4.9); SODIUM SERUM 138.0 mmol/L (136-145); UREA NITROGEN, BLOOD 38.0 mg/dL (7-18)
[2024-10-06] VITALS (24 sets, daily range): BP systolic 109–146; BP diastolic 13–118; TEMP 98–98.3; O2SAT 92–99
[2024-10-06 05:17] LABS: PLATELET COUNT (AUTO) 257 K/uL (150-450); RED BLOOD CELL COUNT(AUTO) 2.77 MIL/uL (4.5-6.0); RED CELL DISTRIBUTION WIDTH 20.7 % (11.5-15.0); WHITE BLOOD COUNT (AUTO) 14.3 K/uL (4.3-11.0)
[2024-10-06 06:14] LABS: CALCIUM, SERUM 8.4 mg/dL (8.5-10.1); CREATININE 4.1 mg/dL (0.6-1.3); PHOSPHORUS 3.6 mg/dL (2.5-4.9); SODIUM SERUM 136.0 mmol/L (136-145); UREA NITROGEN, BLOOD 59.0 mg/dL (7-18)
[2024-10-07] VITALS (24 sets, daily range): BP systolic 94–139; BP diastolic 17–110; TEMP 98–99; O2SAT 92–98
[2024-10-07 04:55] LABS: PLATELET COUNT (AUTO) 247 K/uL (150-450); RED BLOOD CELL COUNT(AUTO) 2.73 MIL/uL (4.5-6.0); RED CELL DISTRIBUTION WIDTH 20.0 % (11.5-15.0); WHITE BLOOD COUNT (AUTO) 11.1 K/uL (4.3-11.0)
[2024-10-07 05:11] LABS: CALCIUM, SERUM 8.4 mg/dL (8.5-10.1); CREATININE 3.8 mg/dL (0.6-1.3); PHOSPHORUS 3.1 mg/dL (2.5-4.9); SODIUM SERUM 143.0 mmol/L (136-145); UREA NITROGEN, BLOOD 46.0 mg/dL (7-18)
[2024-10-07 10:05] LABS: ABG BASE EXCESS 1.2 mmol/L (-2.0-3.0); ABG OXYGEN SATURATION 88.1 % (94.0-98.0); ABG PCO2 37.2 mmHg (35.0-48.0); ABG PH 7.449 (7.350-7.450); ABG PO2 54.6 mmHg (83.0-108.0); ABG TOTAL HEMOGLOBIN 8.8 G/dL (13.5-17.5); FRACTIONATED INSPIRED OXYGEN 50.0 %; PEEP,BG 5 cm H2O; SET RATE, BG 18.0; SITE, ABG RIGHT RADIAL; VT, ABG 400 mL
[2024-10-07] MEDS: PROSOURCE / PROSTAT (PYXIS) 30 ML UDC NG SCH (16:01)
[2024-10-08] VITALS (25 sets, daily range): BP systolic 105–134; BP diastolic 28–82; TEMP 98.3–99.6; O2SAT 94–99
[2024-10-08 05:09] LABS: PLATELET COUNT (AUTO) 246 K/uL (150-450); RED BLOOD CELL COUNT(AUTO) 2.78 MIL/uL (4.5-6.0); RED CELL DISTRIBUTION WIDTH 20.5 % (11.5-15.0); WHITE BLOOD COUNT (AUTO) 12.1 K/uL (4.3-11.0)
[2024-10-08 05:26] LABS: CALCIUM, SERUM 8.3 mg/dL (8.5-10.1); CREATININE 4.6 mg/dL (0.6-1.3); PHOSPHORUS 3.2 mg/dL (2.5-4.9); SODIUM SERUM 139.0 mmol/L (136-145); UREA NITROGEN, BLOOD 60.0 mg/dL (7-18)
[2024-10-08 06:33] LABS: BASOPHILS % (MANUAL) 0 % (0.0-2.0); EOSINOPHILS % (MANUAL) 2 % (0-4); LYMPHOCYTES % (MANUAL) 5 % (16-48); MONOCYTES % (MANUAL) 6 % (0-11.0); NEUTROPHILS % (MANUAL) 87 (42-76); PLATELET ESTIMATE ADEQUATE
[2024-10-09] VITALS (24 sets, daily range): BP systolic 99–123; BP diastolic 30–68; TEMP 97.5–99.8; O2SAT 96–100
[2024-10-09 04:22] LABS: PLATELET COUNT (AUTO) 234 K/uL (150-450); RED BLOOD CELL COUNT(AUTO) 3.04 MIL/uL (4.5-6.0); RED CELL DISTRIBUTION WIDTH 20.2 % (11.5-15.0); WHITE BLOOD COUNT (AUTO) 12.9 K/uL (4.3-11.0)
[2024-10-09 04:39] LABS: CALCIUM, SERUM 8.3 mg/dL (8.5-10.1); CREATININE 3.6 mg/dL (0.6-1.3); PHOSPHORUS 2.6 mg/dL (2.5-4.9); SODIUM SERUM 137.0 mmol/L (136-145); UREA NITROGEN, BLOOD 49.0 mg/dL (7-18)
[2024-10-09 19:28] LABS: OCCULT BLOOD STOOL NEGATIVE (NEGATIVE)
[2024-10-10] VITALS (32 sets, daily range): BP systolic 83–133; BP diastolic 31–76; TEMP 98.1–98.9; O2SAT 96–100
[2024-10-10 04:50] LABS: PLATELET COUNT (AUTO) 207 K/uL (150-450); RED BLOOD CELL COUNT(AUTO) 2.73 MIL/uL (4.5-6.0); RED CELL DISTRIBUTION WIDTH 20.7 % (11.5-15.0); WHITE BLOOD COUNT (AUTO) 11.1 K/uL (4.3-11.0)
[2024-10-10 05:11] LABS: CALCIUM, SERUM 8.6 mg/dL (8.5-10.1); CREATININE 5.0 mg/dL (0.6-1.3); PHOSPHORUS 3.0 mg/dL (2.5-4.9); SODIUM SERUM 140.0 mmol/L (136-145); UREA NITROGEN, BLOOD 66.0 mg/dL (7-18)
[2024-10-10 05:54] LABS: EOSINOPHILS % (MANUAL) 2 % (0-4); LYMPHOCYTES % (MANUAL) 6 % (16-48); MONOCYTES % (MANUAL) 5 % (0-11.0); NEUTROPHILS % (MANUAL) 87 (42-76); PLATELET ESTIMATE ADEQUATE
[2024-10-11] VITALS (28 sets, daily range): BP systolic 93–159; BP diastolic 34–107; TEMP 97.8–98.7; O2SAT 97–100
[2024-10-11 04:22] LABS: PLATELET COUNT (AUTO) 250 K/uL (150-450); RED BLOOD CELL COUNT(AUTO) 3.57 MIL/uL (4.5-6.0); RED CELL DISTRIBUTION WIDTH 20.0 % (11.5-15.0); WHITE BLOOD COUNT (AUTO) 16.6 K/uL (4.3-11.0)
[2024-10-11 04:29] LABS: CALCIUM, SERUM 8.7 mg/dL (8.5-10.1); CREATININE 3.4 mg/dL (0.6-1.3); PHOSPHORUS 2.4 mg/dL (2.5-4.9); SODIUM SERUM 139 mmol/L (136-145); UREA NITROGEN, BLOOD 45 mg/dL (7-18)
[2024-10-11] MEDS ORDERED: POTASSIUM CL. PREMIX PERIPHER. 50 ML IV SCH (12:00)
[2024-10-11] MEDS: POTASSIUM CHLORIDE 20 MEQ POWDER PACKET GT ONE (12:00)
[2024-10-11] MEDS: EPOETIN ALFA (10,000 UNIT) 10,000 UNIT/ML VIAL SQ SCH (14:04)
[2024-10-11] MEDS: PROPOFOL 100 ML IV PRN (15:34)
[2024-10-11] MEDS: PANTOPRAZOLE 40 MG VIAL IV SCH (21:31)
[2024-10-11] MEDS: METOCLOPRAMIDE HCL 10 MG/2 ML VIAL IV SCH (21:31)
[2024-10-12] VITALS (25 sets, daily range): BP systolic 63–137; BP diastolic 21–105; TEMP 97.4–98.2; O2SAT 98–100
[2024-10-12 04:49] LABS: PLATELET COUNT (AUTO) 270 K/uL (150-450); RED BLOOD CELL COUNT(AUTO) 3.37 MIL/uL (4.5-6.0); RED CELL DISTRIBUTION WIDTH 20.7 % (11.5-15.0); WHITE BLOOD COUNT (AUTO) 13.9 K/uL (4.3-11.0)
[2024-10-12 05:29] LABS: SODIUM SERUM 142 mmol/L (136-145)
[2024-10-12 05:30] LABS: ASPARTATE AMINOTRANSFERASE 14 U/L (15-37); CALCIUM, SERUM 8.6 mg/dL (8.5-10.1); CREATININE 4.3 mg/dL (0.6-1.3); PHOSPHORUS 2.9 mg/dL (2.5-4.9); TOTAL PROTEIN, SERUM 5.4 g/dL (6.4-8.2); UREA NITROGEN, BLOOD 65 mg/dL (7-18)
[2024-10-13] VITALS (29 sets, daily range): BP systolic 91–151; BP diastolic 4–87; TEMP 97.2–97.7; O2SAT 95–100
[2024-10-13 04:08] LABS: PLATELET COUNT (AUTO) 263 K/uL (150-450); RED BLOOD CELL COUNT(AUTO) 3.13 MIL/uL (4.5-6.0); RED CELL DISTRIBUTION WIDTH 20.7 % (11.5-15.0); WHITE BLOOD COUNT (AUTO) 11.0 K/uL (4.3-11.0)
[2024-10-13 04:18] LABS: CALCIUM, SERUM 8.4 mg/dL (8.5-10.1); CREATININE 3.6 mg/dL (0.6-1.3); SODIUM SERUM 143.0 mmol/L (136-145); UREA NITROGEN, BLOOD 43.0 mg/dL (7-18)
[2024-10-13] MEDS: ONDANSETRON HCL/PF 4 MG/2 ML VIAL IVP PRN (08:58)
[2024-10-13 10:01] LABS: PLATELET COUNT (AUTO) 297 K/uL (150-450); RED BLOOD CELL COUNT(AUTO) 3.50 MIL/uL (4.5-6.0); RED CELL DISTRIBUTION WIDTH 20.5 % (11.5-15.0); WHITE BLOOD COUNT (AUTO) 10.4 K/uL (4.3-11.0)
[2024-10-14] VITALS (25 sets, daily range): BP systolic 81–141; BP diastolic 25–92; TEMP 97.5–98.5; O2SAT 94–100
[2024-10-14 04:35] LABS: PLATELET COUNT (AUTO) 339 K/uL (150-450); RED BLOOD CELL COUNT(AUTO) 3.56 MIL/uL (4.5-6.0); RED CELL DISTRIBUTION WIDTH 20.3 % (11.5-15.0); WHITE BLOOD COUNT (AUTO) 9.0 K/uL (4.3-11.0)
[2024-10-14 04:56] LABS: CALCIUM, SERUM 8.8 mg/dL (8.5-10.1); CREATININE 4.2 mg/dL (0.6-1.3); SODIUM SERUM 145.0 mmol/L (136-145); UREA NITROGEN, BLOOD 49.0 mg/dL (7-18)
[2024-10-14] MEDS: CYPROHEPTADINE HCL 4 MG TABLET GT SCH (08:26)
[2024-10-14] MEDS: ASPIRIN 81 MG TAB.CHEW GT SCH (08:35)
[2024-10-14] MEDS: PROSOURCE / PROSTAT (PYXIS) 30 ML UDC NG SCH (08:35)
[2024-10-14] MEDS: CARVEDILOL 12.5 MG TABLET GT SCH (11:52)
[2024-10-14] MEDS: MIRTAZAPINE SOLUTAB 15 MG/UDTABLET TAB.RAPDIS GT SCH (21:04)
[2024-10-14] MEDS: GABAPENTIN 100 MG CAPSULE GT SCH (21:05)
[2024-10-15] VITALS (48 sets, daily range): BP systolic 85–171; BP diastolic 18–44; TEMP 98.4–99.6; O2SAT 95–100
[2024-10-15 04:20] LABS: PLATELET COUNT (AUTO) 363 K/uL (150-450); RED BLOOD CELL COUNT(AUTO) 3.41 MIL/uL (4.5-6.0); RED CELL DISTRIBUTION WIDTH 20.5 % (11.5-15.0); WHITE BLOOD COUNT (AUTO) 14.2 K/uL (4.3-11.0)
[2024-10-15 04:50] LABS: ASPARTATE AMINOTRANSFERASE 6.0 U/L (15-37); CALCIUM, SERUM 8.3 mg/dL (8.5-10.1); CREATININE 3.1 mg/dL (0.6-1.3); PHOSPHORUS 2.5 mg/dL (2.5-4.9); SODIUM SERUM 142.0 mmol/L (136-145); TOTAL PROTEIN, SERUM 5.5 g/dL (6.4-8.2); UREA NITROGEN, BLOOD 31.0 mg/dL (7-18)
[2024-10-16] VITALS (70 sets, daily range): BP systolic 82–187; BP diastolic 22–163; TEMP 98.3–99.4; O2SAT 97–100
[2024-10-16 04:55] LABS: PLATELET COUNT (AUTO) 440 K/uL (150-450); RED BLOOD CELL COUNT(AUTO) 3.56 MIL/uL (4.5-6.0); RED CELL DISTRIBUTION WIDTH 20.7 % (11.5-15.0); WHITE BLOOD COUNT (AUTO) 16.0 K/uL (4.3-11.0)
[2024-10-16 05:08] LABS: CALCIUM, SERUM 8.5 mg/dL (8.5-10.1); CREATININE 4.5 mg/dL (0.6-1.3); SODIUM SERUM 143.0 mmol/L (136-145); UREA NITROGEN, BLOOD 49.0 mg/dL (7-18)
[2024-10-17] VITALS (55 sets, daily range): BP systolic 86–141; BP diastolic 20–53; TEMP 98.4–99.6; O2SAT 100
[2024-10-17 05:26] LABS: PLATELET COUNT (AUTO) 370 K/uL (150-450); RED BLOOD CELL COUNT(AUTO) 3.37 MIL/uL (4.5-6.0); RED CELL DISTRIBUTION WIDTH 21.5 % (11.5-15.0); WHITE BLOOD COUNT (AUTO) 20.5 K/uL (4.3-11.0)
[2024-10-17 05:41] LABS: CALCIUM, SERUM 8.4 mg/dL (8.5-10.1); CREATININE 3.6 mg/dL (0.6-1.3); SODIUM SERUM 144.0 mmol/L (136-145); UREA NITROGEN, BLOOD 36.0 mg/dL (7-18)
[2024-10-17] MEDS: MIDODRINE HCL (5MG) 5 MG TABLET PO SCH (14:02)
[2024-10-17] MEDS ORDERED: DOSING PER PHARMACY-VANCOMYCIN IV XX PRN (21:30)
[2024-10-17] MEDS: MEROPENEM 500 MG in IV NS 0.9% 50 ML IV SCH (22:04)
[2024-10-17] MEDS: MEROPENEM 500MG/NS 50 ML PB IV ONE (22:29)
[2024-10-17] MEDS: VANCOMYCIN 1 GM in IV NS 0.9% 250 ML IV ONE (23:01)
[2024-10-17] MEDS: VANCOMYCIN 1 GM /D5W 250 ML PB IV ONE (23:05)
[2024-10-18] VITALS (45 sets, daily range): BP systolic 84–139; BP diastolic 18–90; TEMP 98.5–99.6; O2SAT 100
[2024-10-18 05:16] LABS: CALCIUM, SERUM 8.4 mg/dL (8.5-10.1); CREATININE 4.4 mg/dL (0.6-1.3); SODIUM SERUM 141.0 mmol/L (136-145); UREA NITROGEN, BLOOD 57.0 mg/dL (7-18)
[2024-10-18 05:17] LABS: INR 1.04 (0.91-1.10)
[2024-10-18 05:27] LABS: PLATELET COUNT (AUTO) 432 K/uL (150-450); RED BLOOD CELL COUNT(AUTO) 3.18 MIL/uL (4.5-6.0); RED CELL DISTRIBUTION WIDTH 21.2 % (11.5-15.0); WHITE BLOOD COUNT (AUTO) 21.6 K/uL (4.3-11.0)
[2024-10-18] MEDS ORDERED: MEROPENEM 500 MG in IV NS 0.9% 50 ML IV SCH (09:00)
[2024-10-18] MEDS: IV D5W 1,000 ML IV PRN (09:54)
[2024-10-18] MEDS: FENTANYL PF 100MCG/2ML AMPUL IV PRN (13:23)
[2024-10-18] MEDS: MIDAZOLAM HCL 2 MG/2ML VIAL ONE (13:29)
[2024-10-18] MEDS: MIDAZOLAM HCL 2 MG/2ML VIAL IV ONE ×2 (13:30→13:35)
[2024-10-18] MEDS: VECURONIUM 10 MG VIAL IV ONE (13:35)
[2024-10-18] MEDS ORDERED: VECURONIUM 10 MG VIAL IV ONE (15:29)
[2024-10-18] MEDS: VANCOMYCIN POST DIALYSIS 500MG IV PRN (19:58)
[2024-10-18] MEDS: MEROPENEM 500 MG in IV NS 0.9% 50 ML IV SCH (21:05)
[2024-10-19] VITALS (37 sets, daily range): BP systolic 87–132; BP diastolic 14–49; TEMP 98–98.7; O2SAT 99–100
[2024-10-19 04:07] LABS: PLATELET COUNT (AUTO) 333 K/uL (150-450); RED BLOOD CELL COUNT(AUTO) 3.16 MIL/uL (4.5-6.0); RED CELL DISTRIBUTION WIDTH 20.9 % (11.5-15.0); WHITE BLOOD COUNT (AUTO) 20.7 K/uL (4.3-11.0)
[2024-10-19 04:39] LABS: CALCIUM, SERUM 8.8 mg/dL (8.5-10.1); CREATININE 4.0 mg/dL (0.6-1.3); SODIUM SERUM 138.0 mmol/L (136-145); UREA NITROGEN, BLOOD 43.0 mg/dL (7-18)
[2024-10-20] VITALS (37 sets, daily range): BP systolic 89–159; BP diastolic 22–78; TEMP 98.1–98.4; O2SAT 95–100
[2024-10-20 04:09] LABS: PLATELET COUNT (AUTO) 332 K/uL (150-450); RED BLOOD CELL COUNT(AUTO) 3.10 MIL/uL (4.5-6.0); RED CELL DISTRIBUTION WIDTH 20.8 % (11.5-15.0); WHITE BLOOD COUNT (AUTO) 14.1 K/uL (4.3-11.0)
[2024-10-20 04:12] LABS: INR 1.02 (0.91-1.10)
[2024-10-20 04:22] LABS: CALCIUM, SERUM 8.9 mg/dL (8.5-10.1); CREATININE 5.0 mg/dL (0.6-1.3); SODIUM SERUM 138.0 mmol/L (136-145); UREA NITROGEN, BLOOD 60.0 mg/dL (7-18)
[2024-10-20] MEDS: DEXTROSE 50%-WATER 50 ML DISP.SYRIN IV PRN (23:23)
[2024-10-21] VITALS (35 sets, daily range): BP systolic 85–142; BP diastolic 19–81; TEMP 97.8–98.6; O2SAT 97–100
[2024-10-21 05:11] LABS: CALCIUM, SERUM 8.6 mg/dL (8.5-10.1); CREATININE 4.0 mg/dL (0.6-1.3); SODIUM SERUM 138.0 mmol/L (136-145); UREA NITROGEN, BLOOD 39.0 mg/dL (7-18)
[2024-10-21] MEDS: LORAZEPAM INJ 2 MG/ML VIAL IV PRN (08:58)
[2024-10-21] MEDS: FREE WATER VIA TUBE FEEDING GT SCH (12:56)
[2024-10-22] VITALS (20 sets, daily range): BP systolic 65–162; BP diastolic 25–59; TEMP 99–99.8; O2SAT 98–100
[2024-10-22 05:12] LABS: CALCIUM, SERUM 7.9 mg/dL (8.5-10.1); CREATININE 5.0 mg/dL (0.6-1.3); SODIUM SERUM 139.0 mmol/L (136-145); UREA NITROGEN, BLOOD 52.0 mg/dL (7-18)
[2024-10-22] MEDS: FLUCONAZOLE (100 MG) 100 MG TABLET PO ONE (22:11)
[2024-10-23] VITALS: BP 125/43; TEMP 98.3; O2SAT 100
[2024-10-23 04:00] VITALS: BP 128/42; TEMP 99; O2SAT 100
[2024-10-23 07:37] LABS: CALCIUM, SERUM 8.5 mg/dL (8.5-10.1); CREATININE 3.7 mg/dL (0.6-1.3); UREA NITROGEN, BLOOD 37.0 mg/dL (7-18)
[2024-10-23 07:59] LABS: SODIUM SERUM 139.0 mmol/L (136-145)
[2024-10-23 08:04] VITALS: BP 129/83; TEMP 98.1; O2SAT 100
[2024-10-23] MEDS: FLUCONAZOLE (100 MG) 100 MG TABLET PO SCH (08:42)
[2024-10-23 09:14] LABS: ABG BASE EXCESS 7.3 mmol/L (-2.0-3.0); ABG OXYGEN SATURATION 98.2 % (94.0-98.0); ABG PCO2 37.8 mmHg (35.0-48.0); ABG PH 7.526 (7.350-7.450); ABG PO2 109.2 mmHg (83.0-108.0); ABG TOTAL HEMOGLOBIN 9.1 G/dL (13.5-17.5); PEEP,BG 5 cm H2O; SET RATE, BG 6.0; SITE, ABG RIGHT RADIAL; VT, ABG 400 mL
[2024-10-23 12:09] VITALS: BP 97/80; TEMP 98.1; O2SAT 100
[2024-10-23 16:00] VITALS: BP 123/34; TEMP 97.9; O2SAT 100
[2024-10-23 20:00] VITALS: BP 98/55; TEMP 98.7; O2SAT 100
[2024-10-24] VITALS (7 sets, daily range): BP systolic 92–107; BP diastolic 23–53; TEMP 98.4–99.5; O2SAT 97–100
[2024-10-24] MEDS: POTASSIUM CHLORIDE 20 MEQ POWDER PACKET GT ONE (00:33)
[2024-10-24 06:51] LABS: PLATELET COUNT (AUTO) 373 K/uL (150-450); RED BLOOD CELL COUNT(AUTO) 3.12 MIL/uL (4.5-6.0); RED CELL DISTRIBUTION WIDTH 20.3 % (11.5-15.0); WHITE BLOOD COUNT (AUTO) 18.5 K/uL (4.3-11.0)
[2024-10-24 07:06] LABS: CALCIUM, SERUM 8.7 mg/dL (8.5-10.1); CREATININE 5.5 mg/dL (0.6-1.3); SODIUM SERUM 139.0 mmol/L (136-145); UREA NITROGEN, BLOOD 52.0 mg/dL (7-18)
[2024-10-24] MEDS: ACETAMINOPHEN 325 MG TABLET PO PRN (13:28)
[2024-10-24] MEDS: LIDOCAINE 2%-EPI 1:100,000 30 ML VIAL IJ ONE (16:30)
[2024-10-24] MEDS: LIDOCAINE 2%-EPI 1:100,000 MDV 50 ML IJ ONE (17:00)
[2024-10-25] VITALS: BP 136/25; TEMP 100.4; O2SAT 100
[2024-10-25 04:00] VITALS: BP 117/28; TEMP 99.4; O2SAT 100
[2024-10-25 08:00] VITALS: BP 126/51; TEMP 99.8; O2SAT 100
[2024-10-25 12:00] VITALS: BP 105/32; TEMP 99.5; O2SAT 99
[2024-10-25] MEDS: SOD FERRIC GLUC 125 MG in IV NS 0.9% 100 ML IV SCH (14:18)
[2024-10-25 16:00] VITALS: BP 140/36; TEMP 98.2; O2SAT 100
[2024-10-25 20:00] VITALS: BP 121/45; TEMP 99.5; O2SAT 100
[2024-10-25] MEDS: PANTOPRAZOLE 40 MG/PACK PACK GT SCH (21:34)
[2024-10-26] VITALS (17 sets, daily range): BP systolic 97–157; BP diastolic 24–84; TEMP 98.4–99.5; O2SAT 100
[2024-10-26 07:07] LABS: CALCIUM, SERUM 8.9 mg/dL (8.5-10.1); CREATININE 5.8 mg/dL (0.6-1.3); SODIUM SERUM 137.0 mmol/L (136-145); UREA NITROGEN, BLOOD 57.0 mg/dL (7-18)
[2024-10-26 07:16] LABS: PLATELET COUNT (AUTO) 397 K/uL (150-450); RED BLOOD CELL COUNT(AUTO) 3.07 MIL/uL (4.5-6.0); RED CELL DISTRIBUTION WIDTH 20.4 % (11.5-15.0); WHITE BLOOD COUNT (AUTO) 15.5 K/uL (4.3-11.0)
[2024-10-26 07:28] LABS: INR 1.08 (0.91-1.10)
[2024-10-26] MEDS ORDERED: LIDOCAINE HCL/MPF 1% 30 ML VIAL IJ ONE ×2 (11:22→12:47)
[2024-10-26] MEDS ORDERED: IODIXANOL 150 ML IV ONE (11:38)
[2024-10-26] MEDS ORDERED: IV SET PRIMARY PUMP SET 1 EA INFUS.SET MC ONE (11:39)
[2024-10-26] MEDS ORDERED: IV NS 0.9% 500 ML IV ONE (11:39)
[2024-10-26] MEDS ORDERED: HEPARIN SODIUM, PORCINE 1,000 UNIT/ML VIAL ONE ×4 (12:13→14:19)
[2024-10-26] MEDS ORDERED: HEPARIN SODIUM, PORCINE 5000 UNITS/1 ML VIAL ONE (13:23)
[2024-10-26] MEDS ORDERED: IODIXANOL 320MG/ML 100 ML IV ONE (13:37)
[2024-10-26] MEDS ORDERED: IODIXANOL 320MG/ML 50 ML IV ONE (13:37)
[2024-10-26] MEDS: CLOPIDOGREL BISULFATE 300 MG TABLET PO ONE (15:41)
[2024-10-26] MEDS: ASPIRIN EC 81 MG TABLET.DR PO SCH (16:40)
[2024-10-26] MEDS: SOD FERRIC GLUC 125 MG in IV NS 0.9% 100 ML IV SCH (20:37)
[2024-10-26] MEDS: MIDODRINE HCL (5MG) 5 MG TABLET PO SCH (21:00)
[2024-10-26] MEDS: Z GUARD REMEDY 4 OZ OINT TP SCH (21:32)
[2024-10-26] MEDS: PROSOURCE / PROSTAT (PYXIS) 30 ML UDC NG SCH (21:34)
[2024-10-27] VITALS: BP 108/43; TEMP 98; O2SAT 100
[2024-10-27 04:00] VITALS: BP 124/32; TEMP 98; O2SAT 97
[2024-10-27 06:58] LABS: CALCIUM, SERUM 8.4 mg/dL (8.5-10.1); CREATININE 3.5 mg/dL (0.6-1.3); SODIUM SERUM 138.0 mmol/L (136-145); UREA NITROGEN, BLOOD 32.0 mg/dL (7-18)
[2024-10-27 08:00] VITALS: BP 101/45; TEMP 98.4; O2SAT 100
[2024-10-27] MEDS: CLOPIDOGREL BISULFATE 75 MG TABLET PO SCH (08:10)
[2024-10-27 08:34] LABS: PLATELET COUNT (AUTO) 389 K/uL (150-450); RED BLOOD CELL COUNT(AUTO) 3.16 MIL/uL (4.5-6.0); RED CELL DISTRIBUTION WIDTH 20.7 % (11.5-15.0); WHITE BLOOD COUNT (AUTO) 14.8 K/uL (4.3-11.0)
[2024-10-27 12:00] VITALS: BP 111/33; TEMP 97.9; O2SAT 98
[2024-10-27 16:00] VITALS: BP 115/60; TEMP 98.2; O2SAT 98
[2024-10-27 20:00] VITALS: BP 100/72; TEMP 98.6; O2SAT 97
[2024-10-28] VITALS: BP 128/44; TEMP 98.1; O2SAT 100
[2024-10-28 04:00] VITALS: BP_SYST 120; BP_SYST 130; BP_DIAS 47; BP_DIAS 82; TEMP 97.4; TEMP 98.1; O2SAT 100
[2024-10-28 07:39] LABS: PLATELET COUNT (AUTO) 443 K/uL (150-450); RED BLOOD CELL COUNT(AUTO) 3.16 MIL/uL (4.5-6.0); RED CELL DISTRIBUTION WIDTH 20.7 % (11.5-15.0); WHITE BLOOD COUNT (AUTO) 15.7 K/uL (4.3-11.0)
[2024-10-28 07:49] LABS: CALCIUM, SERUM 9.0 mg/dL (8.5-10.1); CREATININE 4.6 mg/dL (0.6-1.3); SODIUM SERUM 140.0 mmol/L (136-145); UREA NITROGEN, BLOOD 53.0 mg/dL (7-18)
[2024-10-28 08:00] VITALS: BP 131/42; TEMP 97.5; O2SAT 100
[2024-10-28 08:59] LABS: ABG BASE EXCESS 7.6 mmol/L (-2.0-3.0); ABG OXYGEN SATURATION 98.2 % (94.0-98.0); ABG PCO2 43.1 mmHg (35.0-48.0); ABG PH 7.485 (7.350-7.450); ABG PO2 123.0 mmHg (83.0-108.0); ABG TOTAL HEMOGLOBIN 8.6 G/dL (13.5-17.5); FRACTIONATED INSPIRED OXYGEN 40.0 %; PEEP,BG 5 cm H2O; SITE, ABG RIGHT RADIAL
[2024-10-28] MEDS ORDERED: POTASSIUM CHLORIDE 20 MEQ POWDER PACKET GT SCH (10:30)
[2024-10-28 12:00] VITALS: BP 115/77; TEMP 97.7; O2SAT 100
[2024-10-28] MEDS: LIDOCAINE 2%-EPI 1:100,000 30 ML VIAL TP ONE (12:06)
[2024-10-28 16:00] VITALS: BP 143/107; TEMP 98.2; O2SAT 100
[2024-10-28 20:00] VITALS: BP 118/79; TEMP 98.4; O2SAT 99
[2024-10-29] VITALS: BP 120/41; TEMP 99.1; O2SAT 96
[2024-10-29 04:00] VITALS: BP 120/70; TEMP 98.4; O2SAT 100
[2024-10-29 07:47] LABS: CALCIUM, SERUM 8.6 mg/dL (8.5-10.1); CREATININE 3.3 mg/dL (0.6-1.3); PLATELET COUNT (AUTO) 432 K/uL (150-450); RED BLOOD CELL COUNT(AUTO) 3.07 MIL/uL (4.5-6.0); RED CELL DISTRIBUTION WIDTH 20.7 % (11.5-15.0); SODIUM SERUM 140.0 mmol/L (136-145); UREA NITROGEN, BLOOD 36.0 mg/dL (7-18); WHITE BLOOD COUNT (AUTO) 15.2 K/uL (4.3-11.0)
[2024-10-29 07:55] LABS: INR 1.09 (0.91-1.10)
[2024-10-29 08:00] VITALS: BP 124/46; TEMP 99.3; O2SAT 100
[2024-10-29] MEDS: POTASSIUM CHLORIDE 20 MEQ POWDER PACKET GT ONE (09:08)
[2024-10-29 12:00] VITALS: BP 105/59; TEMP 98.8; O2SAT 100
[2024-10-29 14:34] LABS: CALCIUM, SERUM 8.5 mg/dL (8.5-10.1); CREATININE 3.7 mg/dL (0.6-1.3); SODIUM SERUM 139.0 mmol/L (136-145); UREA NITROGEN, BLOOD 40.0 mg/dL (7-18)
[2024-10-29 16:00] VITALS: BP 105/59; TEMP 98.6; O2SAT 98
[2024-10-29] MEDS: NEPRO 1,000 ML BOTTLE GT PRN (18:56)
[2024-10-29 20:00] VITALS: BP 110/59; TEMP 98.6; O2SAT 100
[2024-10-30] VITALS: BP 107/74; TEMP 98.2; O2SAT 100
[2024-10-30 04:00] VITALS: BP 131/93; TEMP 99.1; O2SAT 100
[2024-10-30 06:50] LABS: PLATELET COUNT (AUTO) 433 K/uL (150-450); RED BLOOD CELL COUNT(AUTO) 2.98 MIL/uL (4.5-6.0); RED CELL DISTRIBUTION WIDTH 21.3 % (11.5-15.0); WHITE BLOOD COUNT (AUTO) 14.0 K/uL (4.3-11.0)
[2024-10-30 07:08] LABS: CALCIUM, SERUM 9.0 mg/dL (8.5-10.1); CREATININE 4.3 mg/dL (0.6-1.3); SODIUM SERUM 140.0 mmol/L (136-145); UREA NITROGEN, BLOOD 44.0 mg/dL (7-18)
[2024-10-30 08:00] VITALS: BP 97/59; TEMP 99.3; O2SAT 100
[2024-10-30] MEDS: POTASSIUM CHLORIDE 20 MEQ POWDER PACKET GT ONE (08:34)
[2024-10-30 12:00] VITALS: BP 125/25; TEMP 98.4; O2SAT 100
[2024-10-30 16:00] VITALS: BP 117/56; TEMP 98.6; O2SAT 100
[2024-10-30 20:00] VITALS: BP 132/37; TEMP 97.9; O2SAT 100
[2024-10-31] VITALS: BP 95/30; TEMP 99.3; O2SAT 100
[2024-10-31 04:00] VITALS: BP 104/80; TEMP 100.9; O2SAT 100
[2024-10-31 04:16] LABS: PLATELET COUNT (AUTO) 431 K/uL (150-450); RED BLOOD CELL COUNT(AUTO) 2.98 MIL/uL (4.5-6.0); RED CELL DISTRIBUTION WIDTH 21.7 % (11.5-15.0); WHITE BLOOD COUNT (AUTO) 16.6 K/uL (4.3-11.0)
[2024-10-31 04:24] LABS: CALCIUM, SERUM 8.6 mg/dL (8.5-10.1); CREATININE 2.9 mg/dL (0.6-1.3); SODIUM SERUM 140.0 mmol/L (136-145); UREA NITROGEN, BLOOD 26.0 mg/dL (7-18)
[2024-10-31] MEDS: ACETAMINOPHEN 650 MG/SUPP.RECT RC PRN (04:51)
[2024-10-31] MEDS: IV NS 0.9% 500 ML IV ONE (07:01)
[2024-10-31 08:00] VITALS: BP 102/74; TEMP 97.5; O2SAT 100
[2024-10-31 12:00] VITALS: BP 97/57; TEMP 97.9; O2SAT 100
[2024-10-31] MEDS: MIDODRINE HCL (5MG) 5 MG TABLET PO SCH (12:26)
[2024-10-31 16:00] VITALS: BP 99/47; TEMP 97.1; O2SAT 100
[2024-10-31] MEDS: DAKINS QUARTER STRENGTH (0.125%) 480 ML BOTTLE TOP SCH (16:13)
[2024-10-31 20:00] VITALS: BP 92/66; TEMP 99.1; O2SAT 100
[2024-10-31] MEDS: METOCLOPRAMIDE HCL 10 MG/2 ML VIAL IV SCH (20:32)
[2024-11-01] VITALS (8 sets, daily range): BP systolic 103–130; BP diastolic 45–74; TEMP 97.7–100.6; O2SAT 97–100
[2024-11-01 06:52] LABS: CALCIUM, SERUM 9.0 mg/dL (8.5-10.1); CREATININE 4.3 mg/dL (0.6-1.3); SODIUM SERUM 141.0 mmol/L (136-145); UREA NITROGEN, BLOOD 47.0 mg/dL (7-18)
[2024-11-01 07:06] LABS: PLATELET COUNT (AUTO) 499 K/uL (150-450); RED BLOOD CELL COUNT(AUTO) 3.20 MIL/uL (4.5-6.0); RED CELL DISTRIBUTION WIDTH 21.7 % (11.5-15.0); WHITE BLOOD COUNT (AUTO) 16.1 K/uL (4.3-11.0)
[2024-11-02] VITALS (15 sets, daily range): BP systolic 97–152; BP diastolic 19–117; TEMP 98.6–100.6; O2SAT 98–100
[2024-11-02] MEDS ORDERED: IODIXANOL 150 ML IV ONE (07:41)
[2024-11-02] MEDS ORDERED: LIDOCAINE HCL/MPF 1% 30 ML VIAL IJ ONE (07:42)
[2024-11-02] MEDS ORDERED: HEPARIN SODIUM, PORCINE 1,000 UNIT/ML VIAL ONE ×3 (08:44→09:31)
[2024-11-02] MEDS ORDERED: HEPARIN SODIUM, PORCINE 5000 UNITS/1 ML VIAL ONE (08:44)
[2024-11-02] MEDS ORDERED: IODIXANOL 320MG/ML 50 ML IV ONE (08:54)
[2024-11-02] MEDS ORDERED: IV NS 0.9% 250 ML IV ONE (10:07)
[2024-11-02] MEDS ORDERED: IV SET PRIMARY PUMP SET 1 EA INFUS.SET MC ONE (10:07)
[2024-11-03] VITALS (48 sets, daily range): BP systolic 76–186; BP diastolic 16–51; TEMP 97.9–101.9; O2SAT 97–100
[2024-11-03 07:12] LABS: PLATELET COUNT (AUTO) 410 K/uL (150-450); RED BLOOD CELL COUNT(AUTO) 2.84 MIL/uL (4.5-6.0); RED CELL DISTRIBUTION WIDTH 21.2 % (11.5-15.0); WHITE BLOOD COUNT (AUTO) 18.2 K/uL (4.3-11.0)
[2024-11-03 07:30] LABS: CALCIUM, SERUM 9.1 mg/dL (8.5-10.1); CREATININE 4.4 mg/dL (0.6-1.3); PHOSPHORUS 2.5 mg/dL (2.5-4.9); SODIUM SERUM 141.0 mmol/L (136-145); UREA NITROGEN, BLOOD 43.0 mg/dL (7-18)
[2024-11-03] MEDS ORDERED: SODIUM BICARBONATE SYR 50 MEQ/50 ML DISP.SYRIN IV ONE (12:30)
[2024-11-03] MEDS ORDERED: CALCIUM CHLORIDE 1,000 MG/10 ML DISP.SYRIN IV ONE (12:30)
[2024-11-03] MEDS ORDERED: EPINEPHRINE (1:10,000) SYRINGE 1 MG/10 ML DISP.SYRIN IVP ONE (12:30)
[2024-11-03 12:31] LABS: ABG BASE EXCESS 4.4 mmol/L (-2.0-3.0); ABG OXYGEN SATURATION 99.1 % (94.0-98.0); ABG PCO2 31.4 mmHg (35.0-48.0); ABG PH 7.551 (7.350-7.450); ABG PO2 197.7 mmHg (83.0-108.0); ABG TOTAL HEMOGLOBIN 7.5 G/dL (13.5-17.5); FLOW, BLOOD GAS 15.00 L/min (0.00-30.00); FRACTIONATED INSPIRED OXYGEN 100.0 %; SITE, ABG LEFT FEMORAL
[2024-11-03] MEDS ORDERED: NOREPINEPHRINE 8 MG in IV D5W 242 ML IV PRN (15:00)
[2024-11-03] MEDS: EPINEPHRINE (1:10,000) SYRINGE 1 MG/10 ML DISP.SYRIN IV ONE (15:16)
[2024-11-03] MEDS: NOREPINEPHRINE 8 MG in IV D5W 242 ML IV PRN (16:03)
[2024-11-03] MEDS: DAKINS QUARTER STRENGTH (0.125%) 480 ML BOTTLE TOP SCH (20:55)
[2024-11-03] MEDS ORDERED: DOSING PER PHARMACY-VANCOMYCIN IV XX PRN (21:30)
[2024-11-03] MEDS ORDERED: MEROPENEM 500 MG in IV NS 0.9% 50 ML IV SCH (21:30)
[2024-11-03] MEDS: VANCOMYCIN 1 GM /D5W 250 ML PB IV ONE (21:40)
[2024-11-03] MEDS: MEROPENEM 500MG/NS 50 ML PB IV ONE (21:40)
[2024-11-03] MEDS: MEROPENEM 500 MG in IV NS 0.9% 50 ML IV ONE (21:56)
[2024-11-03] MEDS: VANCOMYCIN 1 GM in IV D5W 250ml IV ONE (22:55)
[2024-11-04] VITALS (100 sets, daily range): BP systolic 75–135; BP diastolic 30–111; TEMP 98.1–99; O2SAT 89–100
[2024-11-04 04:04] LABS: PLATELET COUNT (AUTO) 344 K/uL (150-450); RED BLOOD CELL COUNT(AUTO) 2.81 MIL/uL (4.5-6.0); RED CELL DISTRIBUTION WIDTH 21.1 % (11.5-15.0); WHITE BLOOD COUNT (AUTO) 17.0 K/uL (4.3-11.0)
[2024-11-04 04:17] LABS: CALCIUM, SERUM 9.4 mg/dL (8.5-10.1); CREATININE 5.8 mg/dL (0.6-1.3); PHOSPHORUS 4.2 mg/dL (2.5-4.9); SODIUM SERUM 142.0 mmol/L (136-145); UREA NITROGEN, BLOOD 63.0 mg/dL (7-18)
[2024-11-04 05:51] LABS: BAND % (MANUAL) 1 % (0.0-5.0); BASOPHILS % (MANUAL) 0 % (0.0-2.0); EOSINOPHILS % (MANUAL) 0 % (0-4); LYMPHOCYTES % (MANUAL) 9 % (16-48); MONOCYTES % (MANUAL) 5 % (0-11.0); NEUTROPHILS % (MANUAL) 85 (42-76); PLATELET ESTIMATE ADEQUATE
[2024-11-04] MEDS: MEROPENEM 500 MG in IV NS 0.9% 50 ML IV SCH (21:31)
[2024-11-05] VITALS (82 sets, daily range): BP systolic 91–129; BP diastolic 45–95; TEMP 98–99.9; O2SAT 100
[2024-11-05 04:25] LABS: PLATELET COUNT (AUTO) 316 K/uL (150-450); RED BLOOD CELL COUNT(AUTO) 3.00 MIL/uL (4.5-6.0); RED CELL DISTRIBUTION WIDTH 20.5 % (11.5-15.0); WHITE BLOOD COUNT (AUTO) 15.0 K/uL (4.3-11.0)
[2024-11-05 04:36] LABS: CALCIUM, SERUM 9.0 mg/dL (8.5-10.1); CREATININE 6.1 mg/dL (0.6-1.3); PHOSPHORUS 3.3 mg/dL (2.5-4.9); SODIUM SERUM 144.0 mmol/L (136-145); UREA NITROGEN, BLOOD 74.0 mg/dL (7-18)
[2024-11-05] MEDS: VANCOMYCIN POST DIALYSIS 500MG IV PRN (14:19)
[2024-11-05] MEDS ORDERED: DIATR MEGLU/DIATRIZOATE SODIUM 30 ML BOTTLE (GASTROGRAPHIN) ONE (19:25)
[2024-11-06] VITALS (51 sets, daily range): BP systolic 92–131; BP diastolic 30–80; TEMP 97.8–98.6; O2SAT 99–100
[2024-11-06] MEDS ORDERED: BLOOD SUGAR DIAGNOSTIC 1 EACH STRIP IN SCH (01:00)
[2024-11-06 04:04] LABS: PLATELET COUNT (AUTO) 271 K/uL (150-450); RED BLOOD CELL COUNT(AUTO) 2.78 MIL/uL (4.5-6.0); RED CELL DISTRIBUTION WIDTH 20.6 % (11.5-15.0); WHITE BLOOD COUNT (AUTO) 12.5 K/uL (4.3-11.0)
[2024-11-06 04:20] LABS: CALCIUM, SERUM 8.6 mg/dL (8.5-10.1); CREATININE 4.2 mg/dL (0.6-1.3); SODIUM SERUM 140 mmol/L (136-145); UREA NITROGEN, BLOOD 48 mg/dL (7-18)
[2024-11-06] MEDS: POTASSIUM CL. PREMIX PERIPHER. 50 ML IV SCH (09:48)
[2024-11-06] MEDS ORDERED: DIATR MEGLU/DIATRIZOATE SODIUM 30 ML BOTTLE (GASTROGRAPHIN) ONE (16:52)
[2024-11-07] VITALS (18 sets, daily range): BP systolic 94–124; BP diastolic 53–87; TEMP 98–98.6; O2SAT 100
[2024-11-07 04:49] LABS: CALCIUM, SERUM 8.7 mg/dL (8.5-10.1); CREATININE 5.0 mg/dL (0.6-1.3); SODIUM SERUM 141.0 mmol/L (136-145); UREA NITROGEN, BLOOD 70.0 mg/dL (7-18)
[2024-11-08] VITALS: BP 106/51; TEMP 98.4; O2SAT 99
[2024-11-08 04:00] VITALS: BP 95/56; TEMP 98.2; O2SAT 97
[2024-11-08 07:07] LABS: CALCIUM, SERUM 8.8 mg/dL (8.5-10.1); CREATININE 3.8 mg/dL (0.6-1.3); SODIUM SERUM 139.0 mmol/L (136-145); UREA NITROGEN, BLOOD 47.0 mg/dL (7-18)
[2024-11-08 08:00] VITALS: BP 104/52; TEMP 98.4; O2SAT 100
[2024-11-08] MEDS ORDERED: NEPRO 1,000 ML BOTTLE GT PRN (11:30)
[2024-11-08 12:00] VITALS: BP 82/51; TEMP 98.4; O2SAT 100
[2024-11-08] MEDS: IV NS 0.9% 500 ML IV ONE (12:59)
[2024-11-08 16:00] VITALS: BP 97/56; TEMP 97.7; O2SAT 99
[2024-11-08 20:00] VITALS: BP 109/75; TEMP 98.1; O2SAT 99
[2024-11-09 00:40] VITALS: BP 99/62; TEMP 99.1; O2SAT 99
[2024-11-09 04:17] VITALS: BP 117/44; TEMP 98.8; O2SAT 100
[2024-11-09 06:58] LABS: PLATELET COUNT (AUTO) 136 K/uL (150-450); RED BLOOD CELL COUNT(AUTO) 3.00 MIL/uL (4.5-6.0); RED CELL DISTRIBUTION WIDTH 21.5 % (11.5-15.0); WHITE BLOOD COUNT (AUTO) 11.5 K/uL (4.3-11.0)
[2024-11-09 08:00] VITALS: BP 107/61; TEMP 97.7; O2SAT 98
[2024-11-09 08:09] LABS: ASPARTATE AMINOTRANSFERASE 135.0 U/L (15-37); CALCIUM, SERUM 8.8 mg/dL (8.5-10.1); CREATININE 4.6 mg/dL (0.6-1.3); PHOSPHORUS 3.6 mg/dL (2.5-4.9); SODIUM SERUM 139.0 mmol/L (136-145); TOTAL PROTEIN, SERUM 6.1 g/dL (6.4-8.2); UREA NITROGEN, BLOOD 62.0 mg/dL (7-18)
[2024-11-09 12:00] VITALS: BP 104/60; TEMP 97.3; O2SAT 98
[2024-11-09] MEDS ORDERED: ANESTHESIA TRAY IN PYXIS 1 EA TRAY MC ONE (14:39)
[2024-11-09 16:00] VITALS: BP 112/35; TEMP 97.5; O2SAT 98
[2024-11-09 18:54] LABS: INR 1.12 (0.91-1.10)
[2024-11-09 20:00] VITALS: BP 120/78; TEMP 98.1; O2SAT 100
[2024-11-10] VITALS (28 sets, daily range): BP systolic 77–117; BP diastolic 23–99; TEMP 97.1–98.4; O2SAT 93–100
[2024-11-10] MEDS ORDERED: ANESTHESIA TRAY IN PYXIS 1 EA TRAY MC ONE (06:52)
[2024-11-10] MEDS ORDERED: LIDOCAINE 1% INJ 50 ML MDV IJ ONE (06:53)
[2024-11-10] MEDS ORDERED: BUPIVACAINE 0.25% 75 MG/30 ML VIAL ONE (06:53)
[2024-11-10] MEDS ORDERED: LIDOCAINE 1%-EPI 1:100,000 20 ML VIAL ONE (06:53)
[2024-11-10 06:54] LABS: CALCIUM, SERUM 9.1 mg/dL (8.5-10.1); CREATININE 4.8 mg/dL (0.6-1.3); SODIUM SERUM 140.0 mmol/L (136-145); UREA NITROGEN, BLOOD 77.0 mg/dL (7-18)
[2024-11-10] MEDS ORDERED: FAMOTIDINE/PF INJ 20 MG/2 ML VIAL IV ONE (07:27)
[2024-11-10] MEDS ORDERED: MIDAZOLAM HCL 2 MG/2ML VIAL ONE (07:27)
[2024-11-10] MEDS ORDERED: FENTANYL PF 100MCG/2ML AMPUL ONE (07:27)
[2024-11-10] MEDS ORDERED: ROPIVACAINE HCL 0.5% 5 MG/ML 30ML VIAL ONE (07:28)
[2024-11-10] MEDS ORDERED: VANCOMYCIN 1 GM VIAL ONE (07:36)
[2024-11-10] MEDS ORDERED: POVIDONE-IODINE OINT 28.4 GM TUBE ONE (08:56)
[2024-11-10] MEDS: ALTEPLASE CATHFLO 2 MG/VIAL XX ONE (13:22)
[2024-11-10] MEDS: MIDODRINE HCL (5MG) 5 MG TABLET PO PRN ×2 (13:47→19:46)
[2024-11-10] MEDS: IV NS 0.9% 500 ML IV ONE (17:01)
[2024-11-11] VITALS (93 sets, daily range): BP systolic 55–148; BP diastolic 19–113; TEMP 98–99; O2SAT 88–100
[2024-11-11] MEDS: NOREPINEPHRINE 8 MG in IV D5W 242 ML IV PRN (00:37)
[2024-11-11 04:46] LABS: CALCIUM, SERUM 8.9 mg/dL (8.5-10.1); CREATININE 3.9 mg/dL (0.6-1.3); SODIUM SERUM 141.0 mmol/L (136-145); UREA NITROGEN, BLOOD 69.0 mg/dL (7-18)
[2024-11-11] MEDS: POTASSIUM CHLORIDE 20 MEQ POWDER PACKET GT ONE (10:13)
[2024-11-12] VITALS (94 sets, daily range): BP systolic 62–147; BP diastolic 24–108; TEMP 98.2–99.5; O2SAT 92–100
[2024-11-12 04:45] LABS: PLATELET COUNT (AUTO) 214 K/uL (150-450); RED BLOOD CELL COUNT(AUTO) 3.12 MIL/uL (4.5-6.0); RED CELL DISTRIBUTION WIDTH 21.6 % (11.5-15.0); WHITE BLOOD COUNT (AUTO) 17.2 K/uL (4.3-11.0)
[2024-11-12 05:25] LABS: CALCIUM, SERUM 9.1 mg/dL (8.5-10.1); CREATININE 4.2 mg/dL (0.6-1.3); SODIUM SERUM 142.0 mmol/L (136-145)
[2024-11-12 05:28] LABS: UREA NITROGEN, BLOOD 80.0 mg/dL (7-18)
[2024-11-13] VITALS (70 sets, daily range): BP systolic 52–144; BP diastolic 28–102; TEMP 98.9–99.5; O2SAT 99–100
[2024-11-13 05:37] LABS: PLATELET COUNT (AUTO) 244 K/uL (150-450); RED BLOOD CELL COUNT(AUTO) 3.09 MIL/uL (4.5-6.0); RED CELL DISTRIBUTION WIDTH 21.4 % (11.5-15.0); WHITE BLOOD COUNT (AUTO) 15.3 K/uL (4.3-11.0)
[2024-11-13 05:46] LABS: CALCIUM, SERUM 8.4 mg/dL (8.5-10.1); CREATININE 2.5 mg/dL (0.6-1.3); SODIUM SERUM 143.0 mmol/L (136-145); UREA NITROGEN, BLOOD 45.0 mg/dL (7-18)
[2024-11-13 13:03] LABS: CALCIUM, SERUM 8.9 mg/dL (8.5-10.1); CREATININE 2.7 mg/dL (0.6-1.3); SODIUM SERUM 141.0 mmol/L (136-145); UREA NITROGEN, BLOOD 55.0 mg/dL (7-18)
[2024-11-14] VITALS (97 sets, daily range): BP systolic 52–149; BP diastolic 15–124; TEMP 97.5–98.4; O2SAT 91–100
[2024-11-14 05:10] LABS: PLATELET COUNT (AUTO) 239 K/uL (150-450); RED BLOOD CELL COUNT(AUTO) 2.60 MIL/uL (4.5-6.0); RED CELL DISTRIBUTION WIDTH 21.8 % (11.5-15.0); WHITE BLOOD COUNT (AUTO) 14.7 K/uL (4.3-11.0)
[2024-11-14 06:23] LABS: EOSINOPHILS % (MANUAL) 2 % (0-4); LYMPHOCYTES % (MANUAL) 16 % (16-48); MONOCYTES % (MANUAL) 2 % (0-11.0); NEUTROPHILS % (MANUAL) 80 (42-76); PLATELET ESTIMATE ADEQUATE
[2024-11-14 06:24] LABS: NUCLEATED RED BLOOD CELLS 1.0 /100WBC (0.0-0.0)
[2024-11-14] MEDS: HYDROCORTISONE SOD SUCCINATE 100 MG/2 ML VIAL IV SCH (10:30)
[2024-11-15] VITALS (91 sets, daily range): BP systolic 75–137; BP diastolic 24–99; TEMP 97.4–98.2; O2SAT 99–100
[2024-11-15 04:48] LABS: PLATELET COUNT (AUTO) 263 K/uL (150-450); RED BLOOD CELL COUNT(AUTO) 2.86 MIL/uL (4.5-6.0); RED CELL DISTRIBUTION WIDTH 20.7 % (11.5-15.0); WHITE BLOOD COUNT (AUTO) 18.7 K/uL (4.3-11.0)
[2024-11-15 04:57] LABS: CALCIUM, SERUM 8.9 mg/dL (8.5-10.1); CREATININE 2.8 mg/dL (0.6-1.3); SODIUM SERUM 142.0 mmol/L (136-145); UREA NITROGEN, BLOOD 65.0 mg/dL (7-18)
[2024-11-15] MEDS: MIDODRINE HCL (5MG) 5 MG TABLET PO SCH (12:54)
[2024-11-16] VITALS (95 sets, daily range): BP systolic 56–128; BP diastolic 18–108; TEMP 97.4–99; O2SAT 97–100
[2024-11-16 05:10] LABS: PLATELET COUNT (AUTO) 210 K/uL (150-450); RED BLOOD CELL COUNT(AUTO) 2.41 MIL/uL (4.5-6.0); RED CELL DISTRIBUTION WIDTH 20.7 % (11.5-15.0); WHITE BLOOD COUNT (AUTO) 20.0 K/uL (4.3-11.0)
[2024-11-16 05:38] LABS: CALCIUM, SERUM 8.4 mg/dL (8.5-10.1); CREATININE 3.1 mg/dL (0.6-1.3); PHOSPHORUS 2.3 mg/dL (2.5-4.9); SODIUM SERUM 144.0 mmol/L (136-145)
[2024-11-16 05:42] LABS: UREA NITROGEN, BLOOD 97.0 mg/dL (7-18)
[2024-11-16 05:53] LABS: BAND % (MANUAL) 2 % (0.0-5.0); LYMPHOCYTES % (MANUAL) 5 % (16-48); MONOCYTES % (MANUAL) 4 % (0-11.0); NEUTROPHILS % (MANUAL) 89 (42-76); PLATELET ESTIMATE ADEQUATE
[2024-11-17] VITALS (58 sets, daily range): BP systolic 51–138; BP diastolic 26–90; TEMP 96.5–98.7; O2SAT 91–100
[2024-11-17 04:15] LABS: PLATELET COUNT (AUTO) 258 K/uL (150-450); RED BLOOD CELL COUNT(AUTO) 2.95 MIL/uL (4.5-6.0); RED CELL DISTRIBUTION WIDTH 20.2 % (11.5-15.0); WHITE BLOOD COUNT (AUTO) 25.6 K/uL (4.3-11.0)
[2024-11-17 04:24] LABS: ASPARTATE AMINOTRANSFERASE 28 U/L (15-37); CALCIUM, SERUM 8.9 mg/dL (8.5-10.1); CREATININE 2.5 mg/dL (0.6-1.3); PHOSPHORUS 2.3 mg/dL (2.5-4.9); SODIUM SERUM 140 mmol/L (136-145); TOTAL PROTEIN, SERUM 6.2 g/dL (6.4-8.2); UREA NITROGEN, BLOOD 71 mg/dL (7-18)
[2024-11-18] VITALS (81 sets, daily range): BP systolic 51–146; BP diastolic 27–116; TEMP 97–98.3; O2SAT 99–100
[2024-11-18] MEDS: NOREPINEPHRINE 8 MG in IV D5W 242 ML IV PRN (01:04)
[2024-11-18 05:13] LABS: PLATELET COUNT (AUTO) 264 K/uL (150-450); RED BLOOD CELL COUNT(AUTO) 3.04 MIL/uL (4.5-6.0); RED CELL DISTRIBUTION WIDTH 20.6 % (11.5-15.0); WHITE BLOOD COUNT (AUTO) 22.8 K/uL (4.3-11.0)
[2024-11-18 05:45] LABS: ASPARTATE AMINOTRANSFERASE 18.0 U/L (15-37); CALCIUM, SERUM 9.3 mg/dL (8.5-10.1); CREATININE 3.0 mg/dL (0.6-1.3); PHOSPHORUS 2.3 mg/dL (2.5-4.9); SODIUM SERUM 141.0 mmol/L (136-145); TOTAL PROTEIN, SERUM 6.2 g/dL (6.4-8.2)
[2024-11-18 06:12] LABS: UREA NITROGEN, BLOOD 104.0 mg/dL (7-18)
[2024-11-18 10:16] LABS: ABG BASE EXCESS 2.6 mmol/L (-2.0-3.0); ABG OXYGEN SATURATION 98.6 % (94.0-98.0); ABG PCO2 33.3 mmHg (35.0-48.0); ABG PH 7.505 (7.350-7.450); ABG PO2 136.9 mmHg (83.0-108.0); ABG TOTAL HEMOGLOBIN 8.5 G/dL (13.5-17.5); FRACTIONATED INSPIRED OXYGEN 40.0 %; PEEP,BG 5 cm H2O; SITE, ABG RIGHT RADIAL
[2024-11-18] MEDS: POTASSIUM CHLORIDE 20 MEQ POWDER PACKET GT ONE (10:28)
[2024-11-18] MEDS: K PHOS NEUTRAL 250 MG TABLET PO ONE (19:31)
[2024-11-19] VITALS (21 sets, daily range): BP systolic 54–125; BP diastolic 25–85; TEMP 97.5–98; O2SAT 100
[2024-11-19 04:18] LABS: PLATELET COUNT (AUTO) 235 K/uL (150-450); RED BLOOD CELL COUNT(AUTO) 2.66 MIL/uL (4.5-6.0); RED CELL DISTRIBUTION WIDTH 20.5 % (11.5-15.0); WHITE BLOOD COUNT (AUTO) 17.6 K/uL (4.3-11.0)
[2024-11-19 04:34] LABS: ASPARTATE AMINOTRANSFERASE 16.0 U/L (15-37); CALCIUM, SERUM 8.9 mg/dL (8.5-10.1); CREATININE 2.2 mg/dL (0.6-1.3); PHOSPHORUS 2.9 mg/dL (2.5-4.9); SODIUM SERUM 143.0 mmol/L (136-145); TOTAL PROTEIN, SERUM 5.6 g/dL (6.4-8.2); UREA NITROGEN, BLOOD 66.0 mg/dL (7-18)
[2024-11-19] MEDS: CYPROHEPTADINE HCL 4 MG TABLET ONE (21:33)
[2024-11-20] VITALS: BP 136/56; TEMP 97.5; O2SAT 100
[2024-11-20 04:00] VITALS: BP 120/55; TEMP 97.5; O2SAT 100
[2024-11-20 07:54] LABS: PLATELET COUNT (AUTO) 249 K/uL (150-450); RED BLOOD CELL COUNT(AUTO) 2.93 MIL/uL (4.5-6.0); RED CELL DISTRIBUTION WIDTH 22.7 % (11.5-15.0); WHITE BLOOD COUNT (AUTO) 20.0 K/uL (4.3-11.0)
[2024-11-20 08:00] VITALS: BP 107/55; TEMP 98.1; O2SAT 100
[2024-11-20 08:25] LABS: CALCIUM, SERUM 9.5 mg/dL (8.5-10.1); CREATININE 2.8 mg/dL (0.6-1.3); PHOSPHORUS 3.6 mg/dL (2.5-4.9); SODIUM SERUM 143.0 mmol/L (136-145)
[2024-11-20 09:03] LABS: UREA NITROGEN, BLOOD 98.0 mg/dL (7-18)
[2024-11-20 12:00] VITALS: BP 102/40; TEMP 98.4; O2SAT 100
[2024-11-20 16:00] VITALS: BP 105/45; TEMP 98.1; O2SAT 100
[2024-11-20 20:00] VITALS: BP 104/54; TEMP 98.2; O2SAT 100
[2024-11-21] VITALS: BP 128/44; TEMP 98.2; O2SAT 100
[2024-11-21 04:00] VITALS: BP 111/55; TEMP 98.1; O2SAT 99
[2024-11-21 07:03] LABS: PLATELET COUNT (AUTO) 252 K/uL (150-450); RED BLOOD CELL COUNT(AUTO) 2.64 MIL/uL (4.5-6.0); RED CELL DISTRIBUTION WIDTH 21.9 % (11.5-15.0); WHITE BLOOD COUNT (AUTO) 21.4 K/uL (4.3-11.0)
[2024-11-21 07:05] LABS: CALCIUM, SERUM 8.7 mg/dL (8.5-10.1); CREATININE 2.0 mg/dL (0.6-1.3); PHOSPHORUS 2.5 mg/dL (2.5-4.9); SODIUM SERUM 142.0 mmol/L (136-145); UREA NITROGEN, BLOOD 54.0 mg/dL (7-18)
[2024-11-21 08:20] VITALS: BP 118/80; TEMP 98.2; O2SAT 100
[2024-11-21 12:10] VITALS: BP 134/88; TEMP 97.7; O2SAT 100
[2024-11-21 13:45] LABS: LYMPHOCYTES % (MANUAL) 1 % (16-48); MONOCYTES % (MANUAL) 2 % (0-11.0); NEUTROPHILS % (MANUAL) 97 (42-76); PLATELET ESTIMATE ADEQUATE
[2024-11-21 16:13] VITALS: BP 116/68; TEMP 98.4; O2SAT 100
[2024-11-21] MEDS: HYDROCORTISONE SOD SUCCINATE 100 MG/2 ML VIAL IV SCH (16:52)
[2024-11-21 20:00] VITALS: BP 91/28; TEMP 98; O2SAT 100
[2024-11-22] VITALS: BP 114/30; TEMP 97.9; O2SAT 100
[2024-11-22 04:00] VITALS: BP 98/33; TEMP 98; O2SAT 100
[2024-11-22 07:25] LABS: PLATELET COUNT (AUTO) 244 K/uL (150-450); RED BLOOD CELL COUNT(AUTO) 2.78 MIL/uL (4.5-6.0); RED CELL DISTRIBUTION WIDTH 22.3 % (11.5-15.0); WHITE BLOOD COUNT (AUTO) 17.2 K/uL (4.3-11.0)
[2024-11-22 08:00] VITALS: BP 130/65; TEMP 97.7; O2SAT 100
[2024-11-22 08:15] LABS: CALCIUM, SERUM 9.0 mg/dL (8.5-10.1); PHOSPHORUS 3.5 mg/dL (2.5-4.9)
[2024-11-22 08:22] LABS: CREATININE 2.8 mg/dL (0.6-1.3); SODIUM SERUM 140.0 mmol/L (136-145)
[2024-11-22 08:28] LABS: UREA NITROGEN, BLOOD 82.0 mg/dL (7-18)
[2024-11-22 12:00] VITALS: BP 122/67; TEMP 98.2; O2SAT 100
[2024-11-22 16:00] VITALS: BP 101/51; TEMP 98.1; O2SAT 100
[2024-11-22 20:00] VITALS: BP 140/44; TEMP 98.8; O2SAT 100
[2024-11-22] MEDS: HYDROCORTISONE SOD SUCCINATE 100 MG/2 ML VIAL IV SCH (20:14)
[2024-11-23] VITALS (7 sets, daily range): BP systolic 102–146; BP diastolic 29–51; TEMP 97.9–99.9; O2SAT 99–100
[2024-11-23 07:10] LABS: PLATELET COUNT (AUTO) 267 K/uL (150-450); RED BLOOD CELL COUNT(AUTO) 2.84 MIL/uL (4.5-6.0); RED CELL DISTRIBUTION WIDTH 22.3 % (11.5-15.0); WHITE BLOOD COUNT (AUTO) 16.5 K/uL (4.3-11.0)
[2024-11-23 07:31] LABS: CALCIUM, SERUM 8.9 mg/dL (8.5-10.1); CREATININE 2.1 mg/dL (0.6-1.3); SODIUM SERUM 144.0 mmol/L (136-145); UREA NITROGEN, BLOOD 56.0 mg/dL (7-18)
[2024-11-24] VITALS: BP 129/51; TEMP 97.7; O2SAT 100
[2024-11-24 04:00] VITALS: BP 124/45; TEMP 97.5; O2SAT 100
[2024-11-24 07:54] LABS: PLATELET COUNT (AUTO) 248 K/uL (150-450); RED BLOOD CELL COUNT(AUTO) 2.98 MIL/uL (4.5-6.0); RED CELL DISTRIBUTION WIDTH 22.2 % (11.5-15.0); WHITE BLOOD COUNT (AUTO) 17.2 K/uL (4.3-11.0)
[2024-11-24 08:00] VITALS: BP 134/79; TEMP 97.6; O2SAT 100
[2024-11-24 08:12] LABS: CALCIUM, SERUM 9.1 mg/dL (8.5-10.1); CREATININE 2.5 mg/dL (0.6-1.3); SODIUM SERUM 141.0 mmol/L (136-145); UREA NITROGEN, BLOOD 78.0 mg/dL (7-18)
[2024-11-24 12:00] VITALS: BP 129/35; TEMP 98.9; O2SAT 100
[2024-11-24 16:00] VITALS: BP 117/36; TEMP 97.1; O2SAT 100
[2024-11-24 20:00] VITALS: BP 117/42; TEMP 97.7; O2SAT 100
[2024-11-25] VITALS: BP 108/30; TEMP 97.5; O2SAT 100
[2024-11-25 04:00] VITALS: BP 123/31; TEMP 97.9; O2SAT 100
[2024-11-25 06:11] LABS: PLATELET COUNT (AUTO) 267 K/uL (150-450); RED BLOOD CELL COUNT(AUTO) 2.95 MIL/uL (4.5-6.0); RED CELL DISTRIBUTION WIDTH 21.7 % (11.5-15.0); WHITE BLOOD COUNT (AUTO) 15.9 K/uL (4.3-11.0)
[2024-11-25 06:19] LABS: CALCIUM, SERUM 9.3 mg/dL (8.5-10.1); CREATININE 1.9 mg/dL (0.6-1.3); SODIUM SERUM 144.0 mmol/L (136-145); UREA NITROGEN, BLOOD 66.0 mg/dL (7-18)
[2024-11-25 08:00] VITALS: BP 110/47; TEMP 98.6; O2SAT 100
[2024-11-25 12:00] VITALS: BP 119/27; TEMP 99.7; O2SAT 100
[2024-11-25 16:00] VITALS: BP 130/36; TEMP 99; O2SAT 100
[2024-11-25 20:00] VITALS: BP 127/29; TEMP 99; O2SAT 100
[2024-11-26] VITALS: BP 143/32; TEMP 97.7; O2SAT 100
[2024-11-26 04:00] VITALS: BP 114/37; TEMP 98.2; O2SAT 100
[2024-11-26 07:38] LABS: PLATELET COUNT (AUTO) 301 K/uL (150-450); RED BLOOD CELL COUNT(AUTO) 3.03 MIL/uL (4.5-6.0); RED CELL DISTRIBUTION WIDTH 21.4 % (11.5-15.0); WHITE BLOOD COUNT (AUTO) 17.5 K/uL (4.3-11.0)
[2024-11-26 07:48] LABS: CALCIUM, SERUM 9.6 mg/dL (8.5-10.1); CREATININE 2.5 mg/dL (0.6-1.3); SODIUM SERUM 142.0 mmol/L (136-145)
[2024-11-26 07:55] LABS: UREA NITROGEN, BLOOD 87.0 mg/dL (7-18)
[2024-11-26 08:00] VITALS: BP 114/54; TEMP 98.2; O2SAT 100
[2024-11-26 12:00] VITALS: BP 139/45; TEMP 97.3; O2SAT 100
[2024-11-26 16:00] VITALS: BP 140/85; TEMP 97.3; O2SAT 100
[2024-11-26 20:00] VITALS: BP 120/68; TEMP 98; O2SAT 97
[2024-11-27] VITALS: BP 118/60; TEMP 98.5; O2SAT 95
[2024-11-27 04:00] VITALS: BP 109/58; TEMP 97.8; O2SAT 96
[2024-11-27 07:03] LABS: PLATELET COUNT (AUTO) 259 K/uL (150-450); RED BLOOD CELL COUNT(AUTO) 2.86 MIL/uL (4.5-6.0); RED CELL DISTRIBUTION WIDTH 21.3 % (11.5-15.0); WHITE BLOOD COUNT (AUTO) 13.9 K/uL (4.3-11.0)
[2024-11-27 07:17] LABS: CALCIUM, SERUM 9.1 mg/dL (8.5-10.1); CREATININE 1.8 mg/dL (0.6-1.3); SODIUM SERUM 140.0 mmol/L (136-145); UREA NITROGEN, BLOOD 53.0 mg/dL (7-18)
[2024-11-27 08:00] VITALS: BP 124/81; TEMP 98.6; O2SAT 97
[2024-11-27] MEDS: HYDROCORTISONE SOD SUCCINATE 100 MG/2 ML VIAL IV SCH (08:35)
[2024-11-27] MEDS: POTASSIUM CHLORIDE 20 MEQ POWDER PACKET GT ONE (10:57)
[2024-11-27 12:00] VITALS: BP 118/62; TEMP 98.2; O2SAT 100
[2024-11-27 16:00] VITALS: BP 109/54; TEMP 98.1; O2SAT 100
[2024-11-27 20:00] VITALS: BP 118/32; TEMP 97.9; O2SAT 100
[2024-11-28] VITALS: BP 121/32; TEMP 97.9; O2SAT 100
[2024-11-28 04:00] VITALS: BP 120/37; TEMP 97.9; O2SAT 100
[2024-11-28 06:27] LABS: PLATELET COUNT (AUTO) 288 K/uL (150-450); RED BLOOD CELL COUNT(AUTO) 3.15 MIL/uL (4.5-6.0); RED CELL DISTRIBUTION WIDTH 20.8 % (11.5-15.0); WHITE BLOOD COUNT (AUTO) 15.4 K/uL (4.3-11.0)
[2024-11-28 07:04] LABS: CALCIUM, SERUM 9.4 mg/dL (8.5-10.1); CREATININE 2.2 mg/dL (0.6-1.3); SODIUM SERUM 139.0 mmol/L (136-145); UREA NITROGEN, BLOOD 71.0 mg/dL (7-18)
[2024-11-28 08:00] VITALS: BP 140/40; TEMP 99.3; O2SAT 100
[2024-11-28 12:00] VITALS: BP 137/35; TEMP 98.6; O2SAT 100
[2024-11-28 16:00] VITALS: BP 100/40; TEMP 97.7; O2SAT 100
[2024-11-28 20:00] VITALS: BP 122/32; TEMP 98.1; O2SAT 100
[2024-11-29] VITALS: BP 122/28; TEMP 97.3; O2SAT 100
[2024-11-29 04:00] VITALS: BP 135/21; TEMP 98.2; O2SAT 100
[2024-11-29 07:29] LABS: PLATELET COUNT (AUTO) 275 K/uL (150-450); RED BLOOD CELL COUNT(AUTO) 3.13 MIL/uL (4.5-6.0); RED CELL DISTRIBUTION WIDTH 20.9 % (11.5-15.0); WHITE BLOOD COUNT (AUTO) 12.5 K/uL (4.3-11.0)
[2024-11-29 07:32] LABS: CALCIUM, SERUM 9.8 mg/dL (8.5-10.1); CREATININE 1.8 mg/dL (0.6-1.3); SODIUM SERUM 142.0 mmol/L (136-145); UREA NITROGEN, BLOOD 55.0 mg/dL (7-18)
[2024-11-29 08:00] VITALS: BP 129/72; TEMP 98.2; O2SAT 100
[2024-11-29] MEDS: HYDROCORTISONE SOD SUCCINATE 100 MG/2 ML VIAL IV SCH (09:10)
[2024-11-29 12:00] VITALS: BP 115/49; TEMP 98.8; O2SAT 100
[2024-11-29 16:00] VITALS: BP 144/42; TEMP 99; O2SAT 100
[2024-11-29 20:00] VITALS: BP 124/76; TEMP 98.8; O2SAT 100
[2024-11-30] VITALS: BP 128/29; TEMP 99.3; O2SAT 100
[2024-11-30 04:00] VITALS: BP 130/26; TEMP 99.3; O2SAT 100
[2024-11-30 08:00] VITALS: BP 125/27; TEMP 98.4; O2SAT 100
[2024-11-30 12:00] VITALS: BP 127/33; TEMP 97.9; O2SAT 99
[2024-11-30 16:00] VITALS: BP 116/63; TEMP 99.3; O2SAT 99
[2024-11-30 20:00] VITALS: BP 101/70; TEMP 99.3; O2SAT 99
[2024-12-01] VITALS: BP 112/60; TEMP 99.3; O2SAT 100
[2024-12-01 04:00] VITALS: BP 132/73; TEMP 98.7; O2SAT 99
[2024-12-01 08:00] VITALS: BP 115/57; TEMP 99.5; O2SAT 100
[2024-12-01 12:00] VITALS: BP 115/57; TEMP 100.2; O2SAT 100
[2024-12-01 16:00] VITALS: BP 111/15; TEMP 98.6; O2SAT 100
[2024-12-01 20:00] VITALS: BP 109/97; TEMP 98.8; O2SAT 100
[2024-12-02] VITALS: BP 91/30; TEMP 98.1; O2SAT 100
[2024-12-02 04:00] VITALS: BP 96/21; TEMP 98.1; O2SAT 100
[2024-12-02 08:00] VITALS: BP 111/72; TEMP 97.5; O2SAT 100
[2024-12-02 12:00] VITALS: BP 124/77; TEMP 98; O2SAT 100
[2024-12-02 16:00] VITALS: BP 117/67; TEMP 97.6; O2SAT 100
[2024-12-02 17:19] LABS: ASPARTATE AMINOTRANSFERASE 26.0 U/L (15-37); CALCIUM, SERUM 9.0 mg/dL (8.5-10.1); CREATININE 2.0 mg/dL (0.6-1.3); SODIUM SERUM 140.0 mmol/L (136-145); TOTAL PROTEIN, SERUM 6.7 g/dL (6.4-8.2); UREA NITROGEN, BLOOD 52.0 mg/dL (7-18)
[2024-12-02] MEDS: POTASSIUM CHLORIDE 20 MEQ POWDER PACKET GT ONE (18:25)
[2024-12-02 20:00] VITALS: BP 130/36; TEMP 97.5; O2SAT 100
[2024-12-03] VITALS (11 sets, daily range): BP systolic 79–137; BP diastolic 17–83; TEMP 97.6–99.1; O2SAT 100
[2024-12-03 15:26] LABS: CALCIUM, SERUM 8.8 mg/dL (8.5-10.1); CREATININE 3.9 mg/dL (0.6-1.3); SODIUM SERUM 143.0 mmol/L (136-145)
[2024-12-03 15:28] LABS: PLATELET COUNT (AUTO) 145 K/uL (150-450); RED BLOOD CELL COUNT(AUTO) 2.34 MIL/uL (4.5-6.0); RED CELL DISTRIBUTION WIDTH 20.7 % (11.5-15.0); WHITE BLOOD COUNT (AUTO) 17.3 K/uL (4.3-11.0)
[2024-12-03 15:38] LABS: UREA NITROGEN, BLOOD 88.0 mg/dL (7-18)
[2024-12-03 16:07] LABS: LYMPHOCYTES % (MANUAL) 4 % (16-48); MONOCYTES % (MANUAL) 2 % (0-11.0); NEUTROPHILS % (MANUAL) 94 (42-76); PLATELET ESTIMATE ADEQUATE
[2024-12-04] VITALS (7 sets, daily range): BP systolic 90–145; BP diastolic 27–92; TEMP 97.7–98.6; O2SAT 96–100
[2024-12-04 05:08] LABS: ABG BASE EXCESS -5.6 mmol/L (-2.0-3.0); ABG OXYGEN SATURATION 58.7 % (94.0-98.0); ABG PCO2 40.4 mmHg (35.0-48.0); ABG PH 7.315 (7.350-7.450); ABG PO2 35.7 mmHg (83.0-108.0); ABG TOTAL HEMOGLOBIN 8.0 G/dL (13.5-17.5); FRACTIONATED INSPIRED OXYGEN 40.0 %; PEEP,BG 0 cm H2O; SET RATE, BG 14.0; SITE, ABG LEFT RADIAL; VT, ABG 450 mL
[2024-12-04 09:31] LABS: PLATELET COUNT (AUTO) 130 K/uL (150-450); RED BLOOD CELL COUNT(AUTO) 2.70 MIL/uL (4.5-6.0); RED CELL DISTRIBUTION WIDTH 18.8 % (11.5-15.0); WHITE BLOOD COUNT (AUTO) 17.0 K/uL (4.3-11.0)
[2024-12-04 09:56] LABS: CALCIUM, SERUM 8.7 mg/dL (8.5-10.1); CREATININE 4.7 mg/dL (0.6-1.3); SODIUM SERUM 141.0 mmol/L (136-145)
[2024-12-04 09:58] LABS: UREA NITROGEN, BLOOD 106.0 mg/dL (7-18)
[2024-12-04 17:51] LABS: PLATELET COUNT (AUTO) 121 K/uL (150-450)
[2024-12-04 17:56] LABS: RED BLOOD CELL COUNT(AUTO) 2.55 MIL/uL (4.5-6.0); RED CELL DISTRIBUTION WIDTH 19.2 % (11.5-15.0); WHITE BLOOD COUNT (AUTO) 18.5 K/uL (4.3-11.0)
[2024-12-04 19:32] LABS: BAND % (MANUAL) 2 % (0.0-5.0); LYMPHOCYTES % (MANUAL) 6 % (16-48); MONOCYTES % (MANUAL) 3 % (0-11.0); NEUTROPHILS % (MANUAL) 89 (42-76); PLATELET ESTIMATE DECREASED
[2024-12-05] VITALS (13 sets, daily range): BP systolic 105–136; BP diastolic 25–81; TEMP 97.3–97.9; O2SAT 96–100
[2024-12-05 09:43] LABS: PLATELET COUNT (AUTO) 121 K/uL (150-450); RED BLOOD CELL COUNT(AUTO) 3.61 MIL/uL (4.5-6.0); RED CELL DISTRIBUTION WIDTH 17.7 % (11.5-15.0); WHITE BLOOD COUNT (AUTO) 18.3 K/uL (4.3-11.0)
[2024-12-05 09:44] LABS: CALCIUM, SERUM 9.1 mg/dL (8.5-10.1); CREATININE 3.8 mg/dL (0.6-1.3); SODIUM SERUM 140.0 mmol/L (136-145)
[2024-12-05 09:52] LABS: UREA NITROGEN, BLOOD 87.0 mg/dL (7-18)
[2024-12-06] VITALS: BP 100/85; TEMP 98.5; O2SAT 100
[2024-12-06 04:00] VITALS: BP 105/60; TEMP 98; O2SAT 100
[2024-12-06 08:20] VITALS: BP 107/41; TEMP 98.6; O2SAT 99
[2024-12-06 12:20] VITALS: BP 104/40; TEMP 97.5; O2SAT 98
[2024-12-06 16:20] VITALS: BP 115/69; TEMP 98.1; O2SAT 100
[2024-12-06 16:27] LABS: PLATELET COUNT (AUTO) 130 K/uL (150-450); RED BLOOD CELL COUNT(AUTO) 3.42 MIL/uL (4.5-6.0); RED CELL DISTRIBUTION WIDTH 18.4 % (11.5-15.0); WHITE BLOOD COUNT (AUTO) 16.2 K/uL (4.3-11.0)
[2024-12-06] MEDS: EPOETIN ALFA (10,000 UNIT) 10,000 UNIT/ML VIAL SQ SCH (16:55)
[2024-12-06 20:00] VITALS: BP 135/63; TEMP 97.7; O2SAT 100
[2024-12-07] VITALS: BP 125/38; TEMP 97.7; O2SAT 98
[2024-12-07 04:00] VITALS: BP 128/43; TEMP 98.4; O2SAT 100
[2024-12-07 06:11] LABS: HEPATITIS B CORE AB, IgM Negative (Negative); HEPATITIS B CORE AB, TOTAL Positive (Negative); HEPATITIS B SURFACE AB (QUAL) Reactive (.)
[2024-12-07 08:00] VITALS: BP 122/62; TEMP 97.7; O2SAT 100
[2024-12-07 12:00] VITALS: BP 96/25; TEMP 98; O2SAT 99
[2024-12-07 16:00] VITALS: BP 112/67; TEMP 98.1; O2SAT 100
[2024-12-07 20:00] VITALS: BP 106/58; TEMP 99.7; O2SAT 98
[2024-12-08] VITALS (10 sets, daily range): BP systolic 97–135; BP diastolic 32–96; TEMP 97.6–99.8; O2SAT 96–100
[2024-12-08 12:33] LABS: CALCIUM, SERUM 8.8 mg/dL (8.5-10.1); CREATININE 4.7 mg/dL (0.6-1.3); SODIUM SERUM 136.0 mmol/L (136-145)
[2024-12-08 12:36] LABS: UREA NITROGEN, BLOOD 116.0 mg/dL (7-18)
[2024-12-08 16:16] LABS: PLATELET COUNT (AUTO) 135 K/uL (150-450); RED BLOOD CELL COUNT(AUTO) 3.08 MIL/uL (4.5-6.0); RED CELL DISTRIBUTION WIDTH 18.9 % (11.5-15.0); WHITE BLOOD COUNT (AUTO) 11.7 K/uL (4.3-11.0)
[2024-12-09] VITALS: BP 116/38; TEMP 99.4; O2SAT 98
[2024-12-09 04:00] VITALS: BP 95/42; TEMP 98.4; O2SAT 100
[2024-12-09 06:34] LABS: PLATELET COUNT (AUTO) 154 K/uL (150-450); RED BLOOD CELL COUNT(AUTO) 3.05 MIL/uL (4.5-6.0); RED CELL DISTRIBUTION WIDTH 18.3 % (11.5-15.0); WHITE BLOOD COUNT (AUTO) 12.2 K/uL (4.3-11.0)
[2024-12-09 06:59] LABS: CALCIUM, SERUM 9.0 mg/dL (8.5-10.1); CREATININE 3.8 mg/dL (0.6-1.3); SODIUM SERUM 139.0 mmol/L (136-145); UREA NITROGEN, BLOOD 79.0 mg/dL (7-18)
[2024-12-09 08:30] VITALS: BP 104/54; TEMP 98.7; O2SAT 100
[2024-12-09 12:00] VITALS: BP 133/68; TEMP 98.7; O2SAT 100
[2024-12-09 16:00] VITALS: BP 126/46; TEMP 97.6; O2SAT 100
[2024-12-09 20:00] VITALS: BP 126/31; TEMP 97.6; O2SAT 100
[2024-12-10] VITALS (7 sets, daily range): BP systolic 100–166; BP diastolic 38–88; TEMP 97.7–100; O2SAT 99–100
[2024-12-11] VITALS: BP 99/58; TEMP 97.5; O2SAT 98
[2024-12-11 04:00] VITALS: BP 106/64; TEMP 97.7; O2SAT 100
[2024-12-11 08:00] VITALS: BP 107/53; TEMP 98.2; O2SAT 100
[2024-12-11 12:00] VITALS: BP 105/50; TEMP 99; O2SAT 100
[2024-12-11 16:00] VITALS: BP 104/63; TEMP 98.1; O2SAT 100
[2024-12-11 20:00] VITALS: BP 102/58; TEMP 98.8; O2SAT 100
[2024-12-12] VITALS (8 sets, daily range): BP systolic 82–128; BP diastolic 23–69; TEMP 97.9–100; O2SAT 93–100
[2024-12-12] MEDS ORDERED: EPOE1VIA7 SQ (09:46)
[2024-12-13] VITALS: BP 107/75; TEMP 97.9; O2SAT 100
[2024-12-13 04:00] VITALS: BP 96/70; TEMP 97.5; O2SAT 100
[2024-12-13 08:00] VITALS: BP 99/5; TEMP 98.3; O2SAT 100
[2024-12-13 12:00] VITALS: BP 96/46; TEMP 99.9; O2SAT 100
[2024-12-13 16:00] VITALS: BP 106/84; TEMP 98; O2SAT 100
[2024-12-13 20:00] VITALS: BP 107/48; TEMP 97.5; O2SAT 100
[2024-12-14] VITALS (17 sets, daily range): BP systolic 97–138; BP diastolic 27–65; TEMP 97.5–99; O2SAT 100
[2024-12-14 06:12] LABS: PLATELET COUNT (AUTO) 240 K/uL (150-450); RED BLOOD CELL COUNT(AUTO) 3.05 MIL/uL (4.5-6.0); RED CELL DISTRIBUTION WIDTH 19.8 % (11.5-15.0); WHITE BLOOD COUNT (AUTO) 12.0 K/uL (4.3-11.0)
[2024-12-14 06:17] LABS: CALCIUM, SERUM 9.9 mg/dL (8.5-10.1); PHOSPHORUS 2.5 mg/dL (2.5-4.9); SODIUM SERUM 142.0 mmol/L (136-145)
[2024-12-14 06:25] LABS: CREATININE 5.1 mg/dL (0.6-1.3)
[2024-12-14 08:08] LABS: UREA NITROGEN, BLOOD 97.0 mg/dL (7-18)
[2024-12-15] VITALS (7 sets, daily range): BP systolic 114–142; BP diastolic 60–73; TEMP 98.1–100.4; O2SAT 100
[2024-12-16] VITALS: BP 124/63; TEMP 98.3; O2SAT 100
[2024-12-16 04:00] VITALS: BP 116/47; TEMP 99.2; O2SAT 100
[2024-12-16 08:00] VITALS: BP 105/61; TEMP 98.1; O2SAT 100
[2024-12-16 08:51] LABS: CALCIUM, SERUM 9.5 mg/dL (8.5-10.1); CREATININE 5.4 mg/dL (0.6-1.3); SODIUM SERUM 134.0 mmol/L (136-145)
[2024-12-16 08:57] LABS: PLATELET COUNT (AUTO) 270 K/uL (150-450); RED BLOOD CELL COUNT(AUTO) 3.15 MIL/uL (4.5-6.0); RED CELL DISTRIBUTION WIDTH 20.4 % (11.5-15.0); WHITE BLOOD COUNT (AUTO) 14.6 K/uL (4.3-11.0)
[2024-12-16 09:32] LABS: UREA NITROGEN, BLOOD 110.0 mg/dL (7-18)
[2024-12-16 12:00] VITALS: BP 102/31; TEMP 98.8; O2SAT 100
[2024-12-16 16:00] VITALS: BP 143/89; TEMP 98.2; O2SAT 100
[2024-12-16 20:00] VITALS: BP 100/53; TEMP 98.2; O2SAT 100
[2024-12-17] VITALS: BP 118/87; TEMP 99.1; O2SAT 100
[2024-12-17 04:00] VITALS: BP 102/70; TEMP 99.1; O2SAT 100
[2024-12-17 08:00] VITALS: BP 108/93; TEMP 100.9; O2SAT 99
[2024-12-17 12:00] VITALS: BP 89/45; TEMP 100.4; O2SAT 100
[2024-12-17 15:52] LABS: PLATELET COUNT (AUTO) 224 K/uL (150-450); RED BLOOD CELL COUNT(AUTO) 2.81 MIL/uL (4.5-6.0); RED CELL DISTRIBUTION WIDTH 20.7 % (11.5-15.0); WHITE BLOOD COUNT (AUTO) 19.0 K/uL (4.3-11.0)
[2024-12-17 16:00] VITALS: BP 95/74; TEMP 97.7; O2SAT 100
[2024-12-17 20:00] VITALS: BP 93/53; TEMP 97.3; O2SAT 100
[2024-12-18] VITALS (9 sets, daily range): BP systolic 107–129; BP diastolic 32–74; TEMP 97.9–99.5; O2SAT 100
[2024-12-18 07:21] LABS: PLATELET COUNT (AUTO) 218 K/uL (150-450); RED BLOOD CELL COUNT(AUTO) 2.76 MIL/uL (4.5-6.0); RED CELL DISTRIBUTION WIDTH 20.6 % (11.5-15.0); WHITE BLOOD COUNT (AUTO) 13.6 K/uL (4.3-11.0)
[2024-12-18 08:37] LABS: NEUTROPHILS % (MANUAL) 92 (42-76)
[2024-12-18 08:38] LABS: EOSINOPHILS % (MANUAL) 1 % (0-4); LYMPHOCYTES % (MANUAL) 5 % (16-48); MONOCYTES % (MANUAL) 2 % (0-11.0); PLATELET ESTIMATE ADEQUATE
[2024-12-19] VITALS: BP 104/49; TEMP 98.2; O2SAT 100
[2024-12-19 04:00] VITALS: BP_SYST 136; BP_SYST 147; BP_DIAS 87; BP_DIAS 89; TEMP 97.9; TEMP 98; O2SAT 100
[2024-12-19 08:00] VITALS: BP 139/97; TEMP 99.1; O2SAT 100
[2024-12-19 12:00] VITALS: BP 111/74; TEMP 101.7; O2SAT 99
[2024-12-19 12:53] LABS: CALCIUM, SERUM 9.4 mg/dL (8.5-10.1); CREATININE 4.1 mg/dL (0.6-1.3); SODIUM SERUM 134.0 mmol/L (136-145); UREA NITROGEN, BLOOD 79.0 mg/dL (7-18)
[2024-12-19 13:42] LABS: PLATELET COUNT (AUTO) 221 K/uL (150-450); RED BLOOD CELL COUNT(AUTO) 3.93 MIL/uL (4.5-6.0); RED CELL DISTRIBUTION WIDTH 23.8 % (11.5-15.0); WHITE BLOOD COUNT (AUTO) 16.8 K/uL (4.3-11.0)
[2024-12-19 16:00] VITALS: BP 110/75; TEMP 99.6; O2SAT 100
[2024-12-19 20:00] VITALS: BP 112/48; TEMP 99.1; O2SAT 100
[2024-12-19] MEDS: PIPERACILLIN /TAZOBACTAM 2.25 G in IV D5W 50 ML IV SCH (21:12)
[2024-12-20] VITALS: BP 115/56; TEMP 98.1; O2SAT 100
[2024-12-20 04:00] VITALS: BP 98/54; TEMP 97.8; O2SAT 100
[2024-12-20 07:55] LABS: CALCIUM, SERUM 9.3 mg/dL (8.5-10.1); CREATININE 4.8 mg/dL (0.6-1.3); SODIUM SERUM 133.0 mmol/L (136-145)
[2024-12-20 08:00] VITALS: BP 127/68; TEMP 98.4; O2SAT 100
[2024-12-20 08:08] LABS: UREA NITROGEN, BLOOD 104.0 mg/dL (7-18)
[2024-12-20 08:42] LABS: PLATELET COUNT (AUTO) 247 K/uL (150-450); RED BLOOD CELL COUNT(AUTO) 3.60 MIL/uL (4.5-6.0); RED CELL DISTRIBUTION WIDTH 22.1 % (11.5-15.0); WHITE BLOOD COUNT (AUTO) 19.6 K/uL (4.3-11.0)
[2024-12-20 12:00] VITALS: BP 106/25; TEMP 98.4; O2SAT 100
[2024-12-20 16:00] VITALS: BP 106/78; TEMP 98.4; O2SAT 100
[2024-12-20 20:00] VITALS: BP 93/60; TEMP 97.9; O2SAT 96
[2024-12-21] VITALS: BP 98/66; TEMP 99.1; O2SAT 99
[2024-12-21 04:00] VITALS: BP 105/62; TEMP 99; O2SAT 100
[2024-12-21 08:00] VITALS: BP 95/55; TEMP 98; O2SAT 100
[2024-12-21 12:00] VITALS: BP 100/56; TEMP 98; O2SAT 100
[2024-12-21 13:15] LABS: INR 1.13 (0.91-1.10)
[2024-12-21 16:00] VITALS: BP 128/86; TEMP 98; O2SAT 100
[2024-12-21 20:00] VITALS: BP 123/56; TEMP 98.3; O2SAT 100
[2024-12-21 20:14] LABS: PROTEIN, BODY FLUID 3.9 G/DL
[2024-12-21 21:07] LABS: APPEARANCE,SPUN,BODY FLUID CLEAR (CLEAR); TOTAL VOLUME,BODY FLUID 850 mL; WBC, BODY FLUID 316 /cu. mm. (0-200)
[2024-12-21 21:16] LABS: MONOCYTES,BODY FLUID 5 %
[2024-12-22] VITALS: BP 119/35; TEMP 97.8; O2SAT 100
[2024-12-22 04:00] VITALS: BP 115/38; TEMP 98.1; O2SAT 100
[2024-12-22 07:30] LABS: PLATELET COUNT (AUTO) 275 K/uL (150-450); RED BLOOD CELL COUNT(AUTO) 3.33 MIL/uL (4.5-6.0); RED CELL DISTRIBUTION WIDTH 22.1 % (11.5-15.0); WHITE BLOOD COUNT (AUTO) 16.5 K/uL (4.3-11.0)
[2024-12-22 07:41] LABS: CALCIUM, SERUM 9.1 mg/dL (8.5-10.1); SODIUM SERUM 130.0 mmol/L (136-145)
[2024-12-22 07:48] LABS: CREATININE 5.2 mg/dL (0.6-1.3)
[2024-12-22 08:00] VITALS: BP 105/44; TEMP 98.2; O2SAT 100
[2024-12-22 08:15] LABS: UREA NITROGEN, BLOOD 106.0 mg/dL (7-18)
[2024-12-22 12:00] VITALS: BP 112/52; TEMP 98.4; O2SAT 100
[2024-12-22 16:00] VITALS: BP 110/44; TEMP 98.2; O2SAT 100
[2024-12-22 20:00] VITALS: BP 91/45; TEMP 98.4; O2SAT 100
[2024-12-23] VITALS: BP 96/40; TEMP 98.1; O2SAT 100
[2024-12-23 04:00] VITALS: BP 90/50; TEMP 99.3; O2SAT 100
[2024-12-23 08:00] VITALS: BP 110/40; TEMP 99.3; O2SAT 100
[2024-12-23 12:00] VITALS: BP 116/39; TEMP 98.8; O2SAT 100
[2024-12-23 16:00] VITALS: BP 100/31; TEMP 98.8; O2SAT 100
[2024-12-23 20:00] VITALS: BP 109/38; TEMP 98.2; O2SAT 100
[2024-12-24] VITALS: BP 109/38; TEMP 98.2; O2SAT 100
[2024-12-24 04:00] VITALS: BP 110/40; TEMP 98.3; O2SAT 100
[2024-12-24 08:00] VITALS: BP 100/40; TEMP 98.2; O2SAT 98
[2024-12-24] MEDS: ASPIRIN 81 MG TAB.CHEW GT SCH (09:23)
[2024-12-24] MEDS ORDERED: PHARMACY TO CHANGE PO MEDS TO GT/NG XX PRN (09:30)
[2024-12-24 12:00] VITALS: BP 107/39; TEMP 98.6; O2SAT 97
[2024-12-24 15:55] LABS: RED BLOOD CELL COUNT(AUTO) 3.71 MIL/uL (4.5-6.0); RED CELL DISTRIBUTION WIDTH 22.2 % (11.5-15.0)
[2024-12-24 15:56] LABS: PLATELET COUNT (AUTO) 368 K/uL (150-450); WHITE BLOOD COUNT (AUTO) 20.6 K/uL (4.3-11.0)
[2024-12-24 16:00] VITALS: BP 111/71; TEMP 97.9; O2SAT 98
[2024-12-24 20:00] VITALS: BP 137/75; TEMP 98; O2SAT 95
[2024-12-25] VITALS: BP 110/50; TEMP 97.9; O2SAT 100
[2024-12-25 04:00] VITALS: BP 140/50; TEMP 97.5; O2SAT 95
[2024-12-25 07:36] LABS: PLATELET COUNT (AUTO) 377 K/uL (150-450); RED BLOOD CELL COUNT(AUTO) 3.71 MIL/uL (4.5-6.0); RED CELL DISTRIBUTION WIDTH 22.7 % (11.5-15.0); WHITE BLOOD COUNT (AUTO) 23.3 K/uL (4.3-11.0)
[2024-12-25 07:58] LABS: CALCIUM, SERUM 8.9 mg/dL (8.5-10.1); CREATININE 4.0 mg/dL (0.6-1.3); SODIUM SERUM 132.0 mmol/L (136-145); UREA NITROGEN, BLOOD 63.0 mg/dL (7-18)
[2024-12-25 08:00] VITALS: BP_SYST 102; BP_SYST 107; BP_DIAS 19; BP_DIAS 81; TEMP 98.1; O2SAT 100; O2SAT 95
[2024-12-25 08:31] LABS: ABG BASE EXCESS -0.8 mmol/L (-2.0-3.0); ABG OXYGEN SATURATION 87.5 % (94.0-98.0); ABG PCO2 35.9 mmHg (35.0-48.0); ABG PH 7.429 (7.350-7.450); ABG PO2 55.7 mmHg (83.0-108.0); ABG TOTAL HEMOGLOBIN 9.4 G/dL (13.5-17.5); FRACTIONATED INSPIRED OXYGEN 40.0 %; PEEP,BG 0 cm H2O; SET RATE, BG 14.0; SITE, ABG LEFT BRACHIAL; VT, ABG 450 mL
[2024-12-25] MEDS: CLOPIDOGREL BISULFATE 75 MG TABLET GT SCH (08:31)
[2024-12-25] MEDS: THIAMINE HCL 100 MG TABLET GT SCH (08:31)
[2024-12-25] MEDS ORDERED: AMIODARONE 150 MG/3 ML VIAL IV ONE (11:28)
[2024-12-25] MEDS ORDERED: SODIUM BICARBONATE SYR 50 MEQ/50 ML DISP.SYRIN IV ONE (11:28)
[2024-12-25] MEDS ORDERED: EPINEPHRINE (1:10,000) SYRINGE 1 MG/10 ML DISP.SYRIN IVP ONE (11:28)
[2024-12-25] MEDS ORDERED: CALCIUM CHLORIDE 1,000 MG/10 ML DISP.SYRIN IV ONE (11:28)
== END 2024-12-25 10:54 | DRG 3 ==
LOC: ER 20:57 → ICU 09-19 02:56 → TELE1 10-22 17:55 → ICU 10-26 15:15 → TELE1 10-26 22:18 → ICU 11-02 10:57 → TELE1 11-02 16:27 → ICU 11-03 15:16 → TELE-TD 11-07 16:41 → TELE1 11-07 18:08 → ICU 11-10 18:01 → TELE1 11-19 20:07 → TELE-TD 11-19 20:13 → TELE1 11-21 10:00
PROVIDERS: ADMIT Nurse Practitioner Family
PROC: 5A09457 Assistance with Respiratory Ventilation, 24-96 Consecutive Hours, Continuous Positive Airway Pressure (ICD-10-PCS; principal; 2024-09-19)
PROC: 05HM33Z Insertion of Infusion Device into Right Internal Jugular Vein, Percutaneous Approach (ICD-10-PCS; 2024-09-24)
PROC: 0BH17EZ Insertion of Endotracheal Airway into Trachea, Via Natural or Artificial Opening (ICD-10-PCS; 2024-09-24)
PROC: 5A1D70Z Performance of Urinary Filtration, Intermittent, Less than 6 Hours Per Day (ICD-10-PCS; 2024-09-24)
PROC: 5A1955Z Respiratory Ventilation, Greater than 96 Consecutive Hours (ICD-10-PCS; 2024-09-24)
PROC: B543ZZA Ultrasonography of Right Jugular Veins, Guidance (ICD-10-PCS; 2024-09-24)
PROC: 30233N1 Transfusion of Nonautologous Red Blood Cells into Peripheral Vein, Percutaneous Approach (ICD-10-PCS; 2024-10-01)
PROC: 0B113F4 Bypass Trachea to Cutaneous with Tracheostomy Device, Percutaneous Approach (ICD-10-PCS; 2024-10-18)
PROC: 0BJ08ZZ Inspection of Tracheobronchial Tree, Via Natural or Artificial Opening Endoscopic (ICD-10-PCS; 2024-10-18)
PROC: 0DH63UZ Insertion of Feeding Device into Stomach, Percutaneous Approach (ICD-10-PCS; 2024-10-20)
PROC: 04CM3ZZ Extirpation of Matter from Right Popliteal Artery, Percutaneous Approach (ICD-10-PCS; 2024-10-26)
PROC: 047P3Z1 Dilation of Right Anterior Tibial Artery using Drug-Coated Balloon, Percutaneous Approach (ICD-10-PCS; 2024-10-26)
PROC: 047T3Z1 Dilation of Right Peroneal Artery using Drug-Coated Balloon, Percutaneous Approach (ICD-10-PCS; 2024-10-26)
PROC: 047M3Z1 Dilation of Right Popliteal Artery using Drug-Coated Balloon, Percutaneous Approach (ICD-10-PCS; 2024-10-26)
PROC: 0JH63XZ Insertion of Tunneled Vascular Access Device into Chest Subcutaneous Tissue and Fascia, Percutaneous Approach (ICD-10-PCS; 2024-10-26)
PROC: 02HV33Z Insertion of Infusion Device into Superior Vena Cava, Percutaneous Approach (ICD-10-PCS; 2024-10-26)
PROC: B548ZZA Ultrasonography of Superior Vena Cava, Guidance (ICD-10-PCS; 2024-10-26)
PROC: 0KBP0ZZ Excision of Left Hip Muscle, Open Approach (ICD-10-PCS; 2024-10-28)
PROC: 0KBN0ZZ Excision of Right Hip Muscle, Open Approach (ICD-10-PCS; 2024-10-28)
PROC: 047L3Z1 Dilation of Left Femoral Artery using Drug-Coated Balloon, Percutaneous Approach (ICD-10-PCS; 2024-11-03)
PROC: 04CS3ZZ Extirpation of Matter from Left Posterior Tibial Artery, Percutaneous Approach (ICD-10-PCS; 2024-11-03)
PROC: 04CN3ZZ Extirpation of Matter from Left Popliteal Artery, Percutaneous Approach (ICD-10-PCS; 2024-11-03)
PROC: 047U3Z1 Dilation of Left Peroneal Artery using Drug-Coated Balloon, Percutaneous Approach (ICD-10-PCS; 2024-11-03)
PROC: 04CL3ZZ Extirpation of Matter from Left Femoral Artery, Percutaneous Approach (ICD-10-PCS; 2024-11-03)
PROC: 0Y6N0Z9 Detachment at Left Foot, Partial 1st Ray, Open Approach (ICD-10-PCS; 2024-11-10)
PROC: 0Y6N0ZB Detachment at Left Foot, Partial 2nd Ray, Open Approach (ICD-10-PCS; 2024-11-10)
PROC: 0Y6N0ZC Detachment at Left Foot, Partial 3rd Ray, Open Approach (ICD-10-PCS; 2024-11-10)
PROC: 0Y6N0ZD Detachment at Left Foot, Partial 4th Ray, Open Approach (ICD-10-PCS; 2024-11-10)
PROC: 0Y6N0ZF Detachment at Left Foot, Partial 5th Ray, Open Approach (ICD-10-PCS; 2024-11-10)
PROC: 0Y6M0Z9 Detachment at Right Foot, Partial 1st Ray, Open Approach (ICD-10-PCS; 2024-11-10)
PROC: 0Y6M0ZB Detachment at Right Foot, Partial 2nd Ray, Open Approach (ICD-10-PCS; 2024-11-10)
PROC: 0Y6M0ZC Detachment at Right Foot, Partial 3rd Ray, Open Approach (ICD-10-PCS; 2024-11-10)
PROC: 0Y6M0ZD Detachment at Right Foot, Partial 4th Ray, Open Approach (ICD-10-PCS; 2024-11-10)
PROC: 0Y6M0ZF Detachment at Right Foot, Partial 5th Ray, Open Approach (ICD-10-PCS; 2024-11-10)
PROC: 0HRMXK3 Replacement of Right Foot Skin with Nonautologous Tissue Substitute, Full Thickness, External Approach (ICD-10-PCS; 2024-11-10)
PROC: 0W9B3ZZ Drainage of Left Pleural Cavity, Percutaneous Approach (ICD-10-PCS; 2024-12-21)
PROC: 5A12012 Performance of Cardiac Output, Single, Manual (ICD-10-PCS; 2024-12-25)
DX: A41.9 Sepsis, unspecified organism (principal); L89.154 Pressure ulcer of sacral region, stage 4; L89.324 Pressure ulcer of left buttock, stage 4; L89.314 Pressure ulcer of right buttock, stage 4; J15.69 Pneumonia due to other Gram-negative bacteria; I21.A1 Myocardial infarction type 2; J96.01 Acute respiratory failure with hypoxia; N17.0 Acute kidney failure with tubular necrosis; J15.9 Unspecified bacterial pneumonia; B37.1 Pulmonary candidiasis; R65.21 Severe sepsis with septic shock; E43 Unspecified severe protein-calorie malnutrition; J69.0 Pneumonitis due to inhalation of food and vomit; G92.8 Other toxic encephalopathy; D68.59 Other primary thrombophilia; E11.52 Type 2 diabetes mellitus with diabetic peripheral angiopathy with gangrene; E87.0 Hyperosmolality and hypernatremia; J90 Pleural effusion, not elsewhere classified; I13.0 Hypertensive heart and chronic kidney disease with heart failure and stage 1 through stage 4 chronic kidney disease, or unspecified chronic kidney disease; I50.22 Chronic systolic (congestive) heart failure; L97.528 Non-pressure chronic ulcer of other part of left foot with other specified severity; L97.418 Non-pressure chronic ulcer of right heel and midfoot with other specified severity; L03.115 Cellulitis of right lower limb; M86.8X7 Other osteomyelitis, ankle and foot; E27.40 Unspecified adrenocortical insufficiency; I70.263 Atherosclerosis of native arteries of extremities with gangrene, bilateral legs; E87.6 Hypokalemia; E88.09 Other disorders of plasma-protein metabolism, not elsewhere classified; I25.10 Atherosclerotic heart disease of native coronary artery without angina pectoris; I25.5 Ischemic cardiomyopathy; K29.80 Duodenitis without bleeding; R13.10 Dysphagia, unspecified; Z79.899 Other long term (current) drug therapy; Z99.2 Dependence on renal dialysis; D64.9 Anemia, unspecified; F03.90 Unspecified dementia, unspecified severity, without behavioral disturbance, psychotic disturbance, mood disturbance, and anxiety; E11.22 Type 2 diabetes mellitus with diabetic chronic kidney disease; I70.245 Atherosclerosis of native arteries of left leg with ulceration of other part of foot; I70.234 Atherosclerosis of native arteries of right leg with ulceration of heel and midfoot; T87.81 Dehiscence of amputation stump; Y83.8 Other surgical procedures as the cause of abnormal reaction of the patient, or of later complication, without mention of misadventure at the time of the procedure; Y92.129 Unspecified place in nursing home as the place of occurrence of the external cause; Z68.21 Body mass index [BMI] 21.0-21.9, adult; E11.69 Type 2 diabetes mellitus with other specified complication; Z22.322 Carrier or suspected carrier of Methicillin resistant Staphylococcus aureus; L89.156 Pressure-induced deep tissue damage of sacral region; L98.8 Other specified disorders of the skin and subcutaneous tissue; K29.70 Gastritis, unspecified, without bleeding; E11.40 Type 2 diabetes mellitus with diabetic neuropathy, unspecified; E11.621 Type 2 diabetes mellitus with foot ulcer; Z79.4 Long term (current) use of insulin; Z79.84 Long term (current) use of oral hypoglycemic drugs
CPT/HCPCS: 31720; 36415; 36600; 43246; 71045-TC; 71250-TC; 73620-TC; 74018; 75625; 76770-TC; 80048-TC; 80053-TC; 80076-TC; 80202-TC; 81001; 82272-TC; 82533; 82550-TC; 82570-TC; 82803-TC; 82962-TC; 83520; 83605-TC; 83735-TC; 83970; 84100-TC; 84155; 84165; 84300-TC; 84478-TC; 84484-TC; 85025-TC; 85027-TC; 85347; 85610-TC; 85652-TC; 85730-TC; 86140-TC; 86256; 86704; 86705; 86706; 86707; 86738; 86803; 86850-TC; 87040-TC; 87070-TC; 87075-TC; 87081-TC; 87086-TC; 87102-TC; 87205-TC; 87340; 87350; 88305-TC; 88311-TC; 89051-TC; 90935-TC; 93307-TC; 93970-TC; 94002-TC; 94003-TC; 94760-TC; 94761-TC; 94762-TC; 94799-TC; 99082-TC; A4216; A4217; A4223; A4623; A6213; A6223; A6253; A6254; A6403; A7526; C1751; C1752; G0378; J0169; J0282; J0360; J0456; J0690; J0885; J1171; J1308; J1644; J1720; J1815; J1938; J2060; J2185; J2250; J2405; J2470; J2543; J2704; J2765; J2795; J2916; J2919; J2997; J3010; J3373; J3374; J3480; J3490; J7030; J7040; J7050; J7060; J7070; J7120; P9016; P9047; Q4104; Q9963; Q9967